=== PATIENT | male | born 1985 | race Caucasian/White ===

== ENCOUNTER 2024-04-30 14:15 | Outpatient (AMB) | payer OTHER, MEDICAID, SELFPAY ==
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
[2024-04-30 14:55] VITALS: BP 102/82; PULSE 79; O2SAT 99; BMI 26.4
== END 2024-04-30 15:17 | disposition home or self-care (01) ==
PROVIDERS: PCP Physician Assistant Medical; Visit Provider Physician Assistant
DX: M77.11 Lateral epicondylitis, right elbow (principal); F20.9 Schizophrenia, unspecified; F33.9 Major depressive disorder, recurrent, unspecified; M25.561 Pain in right knee; M25.552 Pain in left hip; F41.1 Generalized anxiety disorder; E78.5 Hyperlipidemia, unspecified

== ENCOUNTER → 2024-04-30 14:15 | Outpatient (BNVA) | payer OTHER, MEDICAID, SELFPAY | PROVIDERS: PCP Physician Assistant Medical; Visit Provider Physician Assistant | DX: M25.552 Pain in left hip (principal); M25.561 Pain in right knee; M77.11 Lateral epicondylitis, right elbow; F20.9 Schizophrenia, unspecified; F41.1 Generalized anxiety disorder; F33.9 Major depressive disorder, recurrent, unspecified; E78.5 Hyperlipidemia, unspecified | CPT/HCPCS: 96127; 99202 ==

== ENCOUNTER 2024-06-05 11:31 | Outpatient (REF) | payer OTHER, SELFPAY ==
[2024-06-05 11:45] LABS: MANUAL DIFF FLAG NO
[2024-06-05 12:26] LABS: Basophils Absolute Auto 0.1 X10*3/uL (0.0-0.2); Eosinophils Absolute Auto 0.2 X10*3/uL (0.0-0.4); Eosinophils Percent Auto 1.7 % (0-4); Hematocrit 45.8 % (42.0-52.0); Hemoglobin 15.5 g/dl (14.0-18.0); Imm Gran Abs Auto 0.03 X10*3/uL (0.00-0.03); Imm Gran Pct Auto 0.3 % (0.0-0.4); Lymphocytes Absolute Auto 2.4 X10*3/uL (1.2-4.9); Lymphocytes Percent Auto 25.4 % (20-40); Mean Corpuscular HGB Conc 33.8 g/dl (31.0-36.0); Mean Corpuscular Hemoglobin 29.8 pg (27.0-33.0); Mean Corpuscular Volume 88.1 fL (80.0-98.0); Mean Platelet Volume 11.6 fL (9.4-12.4); Monocytes Absolute Auto 0.8 X10*3/uL (0.1-1.2); Monocytes Percent Auto 8.1 % (2-11); Neutrophils Percent Auto 63.5 % (45-73); Platelet Count 294 X10*3/uL (160-400); White Blood Count 9.4 X10*3/uL (4.8-10.8)
[2024-06-05 15:05] LABS: Alanine Aminotransferase 17 U/L (0-40); Albumin Level 4.7 g/dL (3.5-5.0); Alkaline Phosphatase 73 U/L (39-117); Anion Gap 13 (12-20); Aspartate Amino Transferase 17 U/L (5-37); Bilirubin Total 0.5 mg/dL (0.0-1.0); Blood Urea Nitrogen 17 mg/dL (9-16); Calcium 9.8 mg/dL (8.4-10.2); Carbon Dioxide 26 mmol/L (22-29); Chloride 108 mmol/L (96-108); Cholesterol 147 mg/dL (<200); Estimated Glomerular Filt Rate > 60; Glucose Fasting 90 mg/dL (60-99); HDL Cholesterol 38 mg/dL (>40); LDL Cholesterol Calculated 93 mg/dL (<100); Potassium 4.6 mmol/L (3.3-5.1); Sodium 142 mmol/L (135-145); TSH reflex Free T4 1.06 uIU/mL (0.32-4.0); Total Protein 7.5 g/dL (6.5-8.0); Triglycerides 81 mg/dL (<150)
== END 2024-06-05 11:32 | disposition home or self-care (01) ==
LOC: HO.LAB 11:31
PROVIDERS: PCP Physician Assistant; Visit Provider Physician Assistant
DX: E78.5 Hyperlipidemia, unspecified (principal); F33.9 Major depressive disorder, recurrent, unspecified; F20.9 Schizophrenia, unspecified; F41.1 Generalized anxiety disorder; M25.552 Pain in left hip
CPT/HCPCS: 36415; 80053; 80061; 84443; 85025

== ENCOUNTER 2024-06-30 08:10 | Outpatient (RCR) | payer OTHER, SELFPAY ==
--- NOTE | 2024-06-05 13:37 | MHC.OT.EP ---
[address] [phone] Occupational Therapy Plan of Care Patient Name: Eliud Shah Date of Evaluation: 06/05/24 Diagnosis: R Elbow pain Pain Location: lateral elbow Pain Score: 2 Pain Scale Used: Numeric (0 - 10) Aggravating Factors: gripping , lifting Alleviating Factors: naproxen when needed Assessment: Pt is a 39 yr old R hand dominant male who saw his primary care to discuss pain in his R elbow. He reports he woke up 6 mos. ago w/ sx's of paresthesia in his hand and UE. He then reports he has had pain radiating from his lateral epicondyle into his wrist. He reports over the last few weeks the pain has significantly improved. He does however have pain w/ palpation of his lateral epi. 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 Thank you once again for your referral.
== END 2024-06-30 08:50 | disposition home or self-care (01) ==
LOC: HO.OT 08:10
PROVIDERS: PCP Physician Assistant; Visit Provider Physician Assistant
DX: M77.11 Lateral epicondylitis, right elbow (principal)
CPT/HCPCS: 97035; 97110; 97140; 97166; 97535

== ENCOUNTER 2024-09-03 08:46 | Outpatient (AMB) | payer OTHER, MEDICAID, SELFPAY ==
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
[2024-09-03 08:55] VITALS: BP 118/82; PULSE 74; TEMP 36.8; O2SAT 97; BMI 25.8
== END 2024-09-03 09:20 | disposition home or self-care (01) ==
LOC: HO.HMCFM 08:47
PROVIDERS: PCP Physician Assistant Medical; Visit Provider Physician Assistant Medical
DX: E78.5 Hyperlipidemia, unspecified (principal); F20.9 Schizophrenia, unspecified; M77.11 Lateral epicondylitis, right elbow

== ENCOUNTER → 2024-09-03 08:46 | Outpatient (BNVA) | payer OTHER, SELFPAY | PROVIDERS: PCP Physician Assistant Medical; Visit Provider Physician Assistant Medical | DX: F41.1 Generalized anxiety disorder (principal); E78.5 Hyperlipidemia, unspecified; F20.9 Schizophrenia, unspecified; M77.11 Lateral epicondylitis, right elbow | CPT/HCPCS: 96127; 99212 ==

== ENCOUNTER → 2024-12-05 18:47 | Outpatient (BNV) | payer OTHER, SELFPAY ==
--- NOTE | 2024-12-05 18:48 | MHC.PC.OV ---
Intake Visit Reasons: Amb Documentation Allergies No Known Allergies Allergy (Verified 09/03/24 08:53) Tobacco use date assessed: 09/03/24 Dental Screening Dental Screen Date: 09/03/24 HPI Amb Documentation HPI Details 39-year-old male with a history of generalized anxiety disorder hypercholesterolemia calling in for an acute problem through Telehealth patient complains of being sees exposed 2 brushes/plans and started to have right arm pruritus rash development. Patient has placed calamine lotion with no relief of symptoms prompting for the call. Through video seen right arm with maculopapular rash with some calamine lotion on top. [facility] Surgical History (Updated 04/30/24 @ 14:55 by Briseida Fortune CMA) No pertinent past surgical history Family History Mother Lung cancer Brother Substance abuse Social History (Updated 09/03/24 @ 08:54 by Gill Rangel MA) Housing: Apartment Alcohol intake: never Patient Tobacco Use Status: Former Tobacco user Cigarettes Per Day: 3 Years Smoked: 2 e-Cigarette/Vaping Use: Former Use Second Hand Smoke Exposure: No Substance Use Type: Marijuana service: No Current occupational status: employed and unemployed Current occupation: SS/Disability Cognitive needs: No Hearing needs: No Vision needs: No Questionnaire Thrive Questionnaire Date Thrive assessed: 09/03/24 Physical exam (Primary Care) Tobacco/Smoking Status: Tobacco use Status Tobacco use date assessed 09/03/24 09/03/24 08:58 Patient Tobacco Use Status Former Tobacco user 09/03/24 08:54 e-Cigarette/Vaping Use Former Use 09/03/24 08:54 Thrive Assessment: Date of Thrive Assessment Date Thrive assessed 09/03/24 09/03/24 08:58 Telehealth Telehealth Telehealth Platform: [facility] Location of provider rendering services: practice address Location of patient: address on file Patient Identification confirmed using: Name, : Yes Telehealth method: video Patient verbally consented to treatment: Yes Patient verbally consented to billing insurance company: Yes Patient informed of any privacy concerns related to visit: Yes Minutes spent on Phone/Video with Pt.: 15 Coding Level of Care Code Tele Est Pt Level 3 (40351) Diagnoses Allergic contact dermatitis L23.9 Assessment & Plan Assessment & Plan (1) Allergic contact dermatitis: Code(s): L23.9 - Allergic contact dermatitis, unspecified cause Category: Medical Plan: Patient is prescribed steroids prednisone and cream to help with the pruritus and discussed about dosing as well as taking steroids with food. This was last for 8 days through tapering dose. Patient is advised to wash all floats that have been contacted with warm water. Persistence advised to call.
== END ==
PROVIDERS: PCP Physician Assistant Medical; Visit Provider Internal Medicine
DX: L23.9 Allergic contact dermatitis, unspecified cause (principal)
CPT/HCPCS: 99213

== ENCOUNTER 2024-12-31 14:10 | Outpatient (AMB) | payer OTHER, SELFPAY ==
--- OUTSIDE RECORDS SUMMARY | 2024-12-27 15:25 | XMS_ITS | Continuity of Care Document ---
Author Organization [facility] ter Address [address] [place] [id number] Care Team Providers Care Double End Trimmer Name Role Phone Josselin De León Primary Care Physician Encounter [facility] [place] Date(s): 12/23/24 - 12/27/24 [facility] [address] [place] [id number] Discharge Disposition: A-D/C Home Attending Physician: Daniel Lazcano MD Admitting Physician: Hallie Loredo DO Referring Physician: Not on Staff, Referring MD Encounter Type: Disch IP Allergies, Adverse Reactions, Alerts No Known Allergies Immunizations Given and Recorded Vaccine Date Status Refusal Reason influenza virus vaccine, inactivated 02/11/24 Miles rded influenza virus vaccine, inactivated 02/25/23 Miles rded influenza virus vaccine, inactivated 03/26/22 Miles rded influenza virus vaccine, inactivated 02/24/21 Miles rded influenza virus vaccine, inactivated 03/05/18 Miles rded influenza virus vaccine, inactivated 02/17/16 Miles rded influenza virus vaccine, inactivated 01/25/15 Miles rded tetanus/diphtheria/pertussis, acel(Tdap) 05/11/22 Recorded tetanus/diphtheria/pertussis, acel(Tdap) 01/04/12 Recorded [id number] 12y+ bivalent booster vax 03/26/22 Recorded SARS-CoV-2 (COVID-19) mRNA BNT-162b2 vac 04/15/21 Recorded SARS-CoV-2 (COVID-19) mRNA BNT-162b2 vac 09/24/20 Recorded SARS-CoV-2 (COVID-19) mRNA BNT-162b2 [facility] 09/03/20 Recorded Medications atorvastatin 10 mg oral tablet = 20 mg, By Mouth, Daily at bedtime, # 30 tablet, 0 Refills, Maintenance, 10/03/23 6:29:00 PM EDT, Partial fill upon patient request if the prescription is for a schedule II opioid drug. Start Date: 10/03/23 Status: Ordered Quantity: 30.0 Unit: tablet Repeat number: 1 Clonazepam = 0.5 mg, By Mouth, 3 times a day, 8AM, 12PM, 4PM, 0 Refills, Maintenance, 01/05/24 11:03:00 AM EDT,Partial fill upon patient request if the prescription is for a schedule II opioid drug. Start Date: 01/05/24 Status: Ordered Repeat number: 1 doxycycline monohydrate 100 mg oral capsule 1 capsule = 100 mg, By Mouth, 2 times a day, for 7 days, # 14 capsule, 0 Refills, Acute 01/03/25 12:15:00 PM EDT, 12/27/24 12:15:00 PM EDT, Capsule, [facility], Partial fill upon patient request if the prescription is for a schedule II opioid drug., 170, cm, 12/27/24 7:40:00 EDT, Height, 78, kg, 12/24/24 12:59:00 EDT, Dry Weight Start Date: 12/27/24 Stop Date: 01/03/25 Status: Ordered Quantity: 14.0 Unit: capsule Repeat number: 1 Olanzapine = 10 mg, By Mouth, Daily at bedtime, 0 Refills, Maintenance, 10/03/23 6:29:00 PM EDT, Partial fill upon patient request if the prescription is for a schedule II opioid drug. Start Date: 10/03/23 Status: Ordered Repeat number: 1 PROzac 10 mg oral capsule 30mg daily, By Mouth, Daily, # 1 capsule, Refills 0, Tot. Refills 0, Maintenance, 10/12/15 8:27:01 AMEDT, Route to Pharmacy Electronically, [address] Start Date: 10/12/15 Status: Ordered Quantity: 1.0 Unit: capsule Repeat number: 1 Results Radiology Reports * Exam Date Time Procedure Performing Provider Status 12/23/24 4:[address] Ext Lower W/ Contrast Left Auth (Verified) Notes: (CT Ext Lower W/ Contrast Left) Reason For Exam: Infection RESULT: CT Ext Lower W/ Contrast Left CT Ext Lower W/ Contrast Left Refer to EMR; Hx of Present Illness: Pt reports he was seen and treated here 2 days ago placed onBactrim-pt is back here today as area has doubled in size and increase redness and now + drainage fromarea.Pt denies any fever , pt is tachycardic; Reason: Infection; Clinical Question(s): Tib Fib; r onec fasc, deep abscess above the right ankle; Special Instructions: scan from below knee down i TECHNIQUE: Helical CT with contrast formatted in 3 planes. cc of was administered intravenously. Weight-based protocol using automatic tube modulation was used to optimize exposure parameters. CTDIvol Body: 15.20 mGy, DLP Body: 771 mGy*cm. COMPARISONS: None FINDINGS: Bones and joints: No fracture or dislocation is present. No erosions, productive changes or abnormal calcifications are noted. Soft Tissues: Along the posterolateral aspect of the left calf, there is a 2.1 x 1.1 x 1 cm subcutaneous cavitary lesion with internal foci of gas and hyperdense material which could represent packing material or blood products. There is a small sinus tract to the skin. There is surrounding skin thickening and mild to moderate diffuse subcutaneous edema, extending to the lateral malleolus, most li antonino representing cellulitis. No evidence of deeper extension or necrotizing fasciitis. IMPRESSION: 1. Along the posterolateral aspect of the left calf, 2.1 x 1.1 x 1 cm subcutaneous cavity with internal foci of gas, and hyperdense material which could represent packing material or blood products. Small sinus tract to the skin. 2. Surrounding cellulitis. No evidence of necrotizing fasciitis. WSN: [id number] Ordering Physician: Andreia Leavitt Dictated By: Benedict Avila MD Dictated Date/Time: 12/23/24 4:40 pm Reviewed By: Benedict Avila MD Signed By: Benedict Avila MD Signed Date/Time: 12/23/24 4:40 pm Transcribed By: CSHumberto Transcribed Date/Time: 12/23/24 4:31 pm Admission evaluation note * Adeline Huggins: MODIFY, MODIFY, MODIFY, PERFORM, MODIFY, MODIFY, MODIFY, MODIFY, MODIFY, MODIFY, MODIFY Event Display: Admission Note Authored Date: [id number] Patient: ??CROW DOWD ? Age:??39 Years?Sex:??Male?:??1985?? History of Present Illness Patient is a 39-year-old gentleman with past medical history of chronic neck pain, anxiety, depression, PTSD and OCD, and recreational marijuana use. ?? A little over one month ago he presented with multiple sores to both distal legs after he was scratched by his cat. No bites.?? Initially seen in ED on 11/18/2024, and was discharged on 7-day course with Augmentin 875mg???125mg for management of RLE cellulitis.?? He presented??tp ED again on 12/21/2024 with 4-day history of worsening redness and swelling to the left lower extremity, and ??question of purulent wound-that he popped the night before he presented to ED.?? He admitted that he has this obsession to pick at his scabs and wounds which he admittedly did in this case.?? He also reported that after finishing recent antibiotic course he was also exposed to poison johanny and was placed on prednisone 12/05, which he completed.?? He continues to deny any IV drug use.?? At the time his visit was notable for tachycardia, with stable BP send no fevers.?? Lab work with notable leukocytosis WBC count 23.7 with a left shift; slight bump in CRP at 1.0, with unremarkable ESR 12.?? Rest of the lab work was reassuring.?? He was discharged on 7-day course with Bactrim, and topical chlorhexidine soap. He returned to??ED ??this afternoon with worsening left lower extremity infection and ankle swelling, wound?now draining purulent discharge.?? He admitted that he continues to scratch and pick at the area.?? Reported compliance with recently prescribed Bactrim. Denies fevers, chills or rigors.?? Remainder of the review of systems is negative for chest pain, dyspnea, cough, lightheadedness or dizziness.?? No GI complaint such as abdominal pain/distention/nausea/vomiting/diarrhea or melena.?? No complaints.?Denies personal history of type 2 diabetes me llitus.?? Denies other immunocompromising states, including HIV.?? He does not smoke cigarettes/tobacco use.?? Denies any recreational drug use including IV drug use. ?? ED course: On presentation was notably tachycardic with HR initially in the 140s, improved to 120s.?? With stable BPs although slightly on the hypertensive side highs documented BP 140/93.?? Remains afebrile.??Without tachypnea or hypoxia.?? Initial lab work was notable for improving leukocytosis (from priorvisit 12/20) today 2.2, with left shift.?? General chemistry panel now raising concern for mild acute kidney injury with creatinine 1.47/BUN 15 (from prior baseline 1.1); with mild NAGMA bicarb of 19.?? Lactate was WNL at 1.4. CT of the left lower extremity showed: IMPRESSION: 1.?? Along the posterolateral aspect of the left calf, 2.1 x 1.1 x 1 cm subcutaneous cavity with internal foci of gas, and hyperdense material which could represent packing material or blood products. Small sinus tract to the skin. 2.?? Surrounding cellulitis. No evidence of necrotizing fasciitis. ?? He was started on empiric vancomycin and will be admitted for further evaluation management of sepsis secondary to purulent cellulitis of the left lower extremity with associated acute kidney injury. Review of Systems Constitutional:?As per HPI. Cardiovascular:??No chest pain,pressure or discomfort. No palpitations or pedal edema. Respiratory:??No shortness of breath, cough or sputum production. Gastrointestinal:?No anorexia, nausea, vomiting or diarrhea. No abdominal pain or blood in stool. Genitourinary: No burning micturition. Neurologic: No headache, dizziness, syncope, unilateral weakness, ataxia, numbness or tingling in the extremities. Musculoskeletal: As per HPI. Objective Measurements?? Height: 170 cm (12/23/24) Weight: 75 kg (12/23/24) Dry Weight: 75 kg (12/23/24) Body Mass Index:??25.95 kg/m2??High (12/23/24) ? Vital Signs?? Temperature: 98.4 DegF (12/23/24 20:02:00) Temperature Route: Oral (12/23/24 20:02:00) Pulse Rate: 80 bpm (12/23/24 20:02:00) Respiratory Rate: 18 br/min (12/23/24 20:02:00) Systolic Blood Pressure: 128 mm Hg (12/23/24 20:02:00) Diastolic Blood Pressure:??87 mm Hg??High (12/23/24 20:02:00) Blood pressure sites: Arm, left (12/23/24 20:02:00) Mean Arterial Pressure: 101 mm Hg (12/23/24 20:02:00) Pulse Pressure: 41 mm Hg (12/23/24 20:02:00) Oxygen Saturation: 95 % (12/23/24 20:00:00) Mode of Delivery (Oxygen): Room air (12/23/24 20:00:00) Early Warning Score: 5 (12/23/24 20:09:17) ? Intake/Output? No Data Available ? Physical Exam GEN:??Pleasant elderly gentleman, appears stated age. ??DAWN x 3, provides good history. ??Nontoxic???appearing. ??No distress.?? Euvolemic on exam. CV: Regular rate and rhythm. S1 and S2 normal . No murmurs. PULM: ??BS clear to auscultation BL. ABD: Soft. Non-distended.?? Nontender. EXT:??//Exam is limited by recently apply clean/dry/intact dressing by ED staff.?? A large 10 x 10 cm erythema with very center with pus.?? Tender to palpation.?? Some ankle swelling (compared to contralateral extremity).?? Warm to touch.?? No crepitus.?? Pulses are strong and intact.?? Compartments are soft and easily compressible. ??Motor and neurovascular examination otherwise intact. //Noted??superficial scabs throughout the??distal aspect of the right lower extremity, without surrounding cellulitic findings. NEURO: No gross neurologic focal deficits. SKIN: Warm/dry/well-perfused, except for findings as mentioned above. PSYCH: Patient is calm and pleasant.? Assessment/Plan Patient is a 39-year-old gentleman with past medical history of chronic neck pain, anxiety, depression, PTSD and OCD, and recreational marijuana use. ?? Diagnoses ? Sepsis (A41.9): . Cellulitis of left lower extremity (L03.116): . Acute kidney injury (N17.9): 2/2 sepsis. Metabolic acidosis, normal anion gap (NAG) (E87.20): 2/2 sepsis and YEIMI.?? Approximately a little over a month ago patient sustained multiple scratches to his lower extremities by his cat.?? He was in the ED on 11/18/2024 and completed 7-day course with Augmentin.?? Unfortunately after finishing the course, he continued to pick at the scabs (hx of OCD)??and also had exposure to the poison johanny.?? He returned to emergency department 12/21/2024 with worsening redness and new purulent discharge from?? the lower extremity wound and was started on 7-day course with Bactrim andHibiclens.?? He returned 2 days later today, 12/23, with acute worsening in his left distal lower extremity swelling/redness, now pus coming from the wound.?? Workup in ED is concerning for sepsis secondary to purulent left lower extremity cellulitis, with tachycardia, leukocytosis, and acute kidneyinjury with associated metabolic acidosis.?? Fortunately blood pressures remained stable.?? Lactateis unremarkable.?? He will be admitted for further evaluation management, with the following plan ??? Admit to acute care medical floor ??? He was started on empiric vancomycin, will continue with Vancomycin (while awaiting bacterial blood cultures and superficial wound cultures), per renal function ??? Please follow-up on bacterial blood cultures ??? Please follow-up on superficial wound culture/sensitivity???already sent out by ED ??? Repeat CBC in the morning to trend leukocytosis - Pain control with as needed Tylenol, so far did not require anything beyond that ??? Will monitor for new onset fevers -S/P 1L NS bolus from ED, will provider maintenance IVF w/ NS at 75ml/hr x13hrs -repeat BMP and electrolytes in the morning to ensure resolution of YEIMI. If no improvement/resolution consider renal US and additional labwork ?? Anxiety (F41.9): . Depression (F32.9): . PTSD (post-traumatic stress disorder) (F43.10): . OCD (obsessive compulsive disorder) (F42.9): . - Continue scheduled clonazepam 0.5 mg @8am, 12pm, 4pm; daily Prozac and nightly olanzapine. ?? Hyperlipidemia (E78.5): ??? Continue atorvastatin ? Quality Measures: DVT prophylaxis: Heparin SQ TID Diet: regular diet Code Status: FULL CODE - as discussed with patient at bedside Medication list: confirmed with??patient at bedside. ?? Opportunity for questions given and answered.?? Patient verbalized understanding and in agreement with the above plan. ?? Date of service:??12/23/2024 ? Histories Allergies Allergies ?(Active and Proposed Allergies Only) NKA? (Severity: Unknown severity, Onset: Unknown) ? Past Medical History/Problem List No problems documented. ? Past Surgical History No surgery history documented. ? Social History No social history documented. ? Psychosocial History ? Family History Mother (): A lung cancer, former cigarette smoker,??type 2 diabetes mellitus Father:??ESRD???requiring HD, has not been???with him for many years at this point ?? Medications Home Medications Atorvastatin (atorvastatin 10 mg oral tablet)??20 Milligram By Mouth Daily at bedtime Clonazepam??0.5 Milligram By Mouth 3 times a day 8AM, 12PM, 4PM Fluoxetine (PROzac 10 mg oral capsule)??30mg daily By Mouth Daily Olanzapine??10 Milligram By Mouth Daily at bedtime ? Results Recent Labs BACTERIOLOGY Blood Culture Results Preliminary report ()?? 12/21/2024 10:52 Blood Culture Isolate 1 Comment ()?? 12/21/2024 10:52 Blood Cult 2 Results Preliminary report ()?? 12/21/2024 10:52 Blood Culture 2 Isolate 1 Comment ()?? 12/21/2024 10:52 ?? BLOOD COUNT & DIFF WBC 18.2 k/mm3 (High)?? 12/23/2024 10:26 RBC 5.53 m/mm3 ()?? 12/23/2024 10:26 Hgb 16.4 Gm/dL ()?? 12/23/2024 10:26 Hct 48.2 % ()?? 12/23/2024 10:26 MCV 87.2 femtoliters ()?? 12/23/2024 10:26 MCH 29.7 pg ()?? 12/23/2024 10:26 MCHC 34.0 Gm/dL ()?? 12/23/2024 10:26 Platelet Count 333 k/mm3 ()?? 12/23/2024 10:26 RDW-SD 42.2 femtoliters ()?? 12/23/2024 10:26 MPV 11.2 femtoliters ()?? 12/23/2024 10:26 Nucleated RBC (Automated) 0.0 #/100 WBC'S ()?? 12/23/2024 10:26 Abs. NRBC 0.0 k/mm3 ()?? 12/23/2024 10:26 Abs. Neut 14.7 k/mm3 (High)?? 12/23/2024 10:26 Abs. Lymph 1.7 k/mm3 ()?? 12/23/2024 10:26 Abs. Emmons 1.5 k/mm3 (High)?? 12/23/2024 10:26 Abs. Eo 0.1 k/mm3 ()?? 12/23/2024 10:26 Abs. Baso 0.1 k/mm3 ()?? 12/23/2024 10:26 Neut % 81.0 % (High)?? 12/23/2024 10:26 Lymph % 9.4 % (Low)?? 12/23/2024 10:26 Emmons % 8.4 % ()?? 12/23/2024 10:26 Eos % 0.5 % ()?? 12/23/2024 10:26 Baso % 0.3 % ()?? 12/23/2024 10:26 Imm Gran 0.4 % ()?? 12/23/2024 10:26 Abs. Imm Gran 0.1 k/mm3 ()?? 12/23/2024 10:26 ?? CHEM GENERAL Sodium 138 mmol/L ()?? 12/23/2024 10:26 Potassium 3.7 mmol/L ()?? 12/23/2024 10:26 Chloride 103 mmol/L ()?? 12/23/2024 10:26 Bicarbonate Level 19 mmol/L (Low)?? 12/23/2024 10:26 Anion Gap 16 mmol/L ()?? 12/23/2024 10:26 Glucose Level 142 mg/dL (High)?? 12/23/2024 10:26 BUN 15 mg/dL ()?? 12/23/2024 10:26 Creatinine-Blood 1.47 mg/dL (High)?? 12/23/2024 10:26 Estimated GFR Creatinine 61 ML/MIN/1.73 M2 ()?? 12/23/2024 10:26 Calcium 10.3 mg/dL ()?? 12/23/2024 10:26 Protein, Total 7.9 Gm/dL ()?? 12/23/2024 10:26 Albumin 4.8 Gm/dL ()?? 12/23/2024 10:26 AG Ratio 1.5 ()?? 12/23/2024 10:26 Alkaline Phosphatase 93 units/L ()?? 12/23/2024 10:26 AST (SGOT) 12 units/L ()?? 12/23/2024 10:26 ALT (SGPT) 8 units/L ()?? 12/23/2024 10:26 Bilirubin, Total 0.7 mg/dL ()?? 12/23/2024 10:26 Lactate 2.1 mmol/L ()?? 12/23/2024 16:04 ?? URINE OTHER Est Creatinine Clearance 61.68 mL/min ()?? 12/23/2024 11:38 ? Image ?CT Ext Lower W/ Contrast Left??12/23/2024 16:28 by Cali Alexander ?IMPRESSION: 1. Along the posterolateral aspect of the left calf, 2.1 x 1.1 x 1 cm subcutaneous cavity with internal foci of gas, and hyperdense material which could represent packing material or blood products. Small sinus tract to the skin. 2. Surrounding cellulitis. No evidence of necrotizing fasciitis. ?? EKG study * Event Display: ECG 12-Lead Authored Date: Please click on pdf link to open report * Event Display: ECG 12-Lead Authored Date: Ventricular Rate: 118 BPM Atrial Rate: 118 BPM P-R Interval: 122 ms QRS Duration: 72 ms Q-T Interval: 326 ms QTC Calculation(Bazett): 456 ms P [place]: 72 degrees R [place]: 58 degrees T [place]: 56 degrees Sinus tachycardia Otherwise normal ECG When compared with ECG of 17-Apr-2013 20:31, Vent. rate has increased by 51 bpm Confirmed by ELISE GOMEZ [facility] ([id number]) on 12/23/2024 5:18:54 PM [place]: [facility] * Mónica Curry RN: PERFORM, SIGN, VERIFY Event Display: Progress Note Hospital Authored Date: Patient: CROW DOWD Age: 39 years Sex: Male : 1985 Associated Diagnoses: None Author: Mónica Curry RN Findings Evaluation Patient being discharged home today. Discharge instructions printed and reviewed with patient. Peripheral IV removed with catheter intact and pressure dressing applied. Pt. ambulated off unit independently. . * Candace Nguyen RN: PERFORM, SIGN, VERIFY Event Display: Progress Note Hospital Authored Date: Patient: CROW DOWD Age: 39 years Sex: Male : 1985 Associated Diagnoses: None Author: Candace Nguyen RN See CIS for Biophysical Patient is A&Ox4, denies any nausea or dizziness. VSS, afebrile. Patient had no c/o pain, pt refused evening medications. Denies Chest pain or SOB, clear LS on RA. Steady rise and fall of chestnoted. Tolerating diet as ordered. Last BM 12/25. +BS, no c/o of abdominal pain or tenderness. Continent of stool and urine. See CIS for detailed skin assessment. IND at baseline. Patient is resting comfortably with all needs met, all questions and concerns addressed. Bed in lowest locked position with safety features in place. Call nuñez within reach. Plan of care ongoing, purposeful??hourly rounds made Findings Problem Related to Alteration in Integumentary : Alteration in Integumentary/new 12/27/2024 5:00 EDT Alteration in Integumentary Related to Cellulitis Goals & Outcomes, Integumentary Nutritional intake is adequate for metabolic needs, Pt will maintain adequate fluid & nutritional balance, Pt will maintain intact skin integrity, Wound will progress towards healing Interventions, Integumentary Cleanse all wounds with Normal Saline, Collaborate w/ provider for PT/OT consults, Consult Wound Care as needed for further interventions, Encourage & assist pt to change position frequently, Encourage & assist with range of motion exercises, Encourage family participation in pt's care as they are able, Ensure relief modes are on mattress surface & utilized, Increase turning frequency if red or blanched areas appear, Interdisciplinary consults as appropriate, Keep bed as flat as tolerated to reduce shearing, Keep linen clean, dry and wrinkle free, Keepskin clean & dry, Maintain sterile technique with dressing changes, Minimize friction, shear and moisture, Monitor reddened areas for continued or increasing reddness, Record extent of impaired skin integrity, Relieve pressure off bony areas, Reposition pt off reddened areas, Teach Pt/caregivers/s of infection, Teach Pt/S.O. risks of & measures to prevent skin breakdown, Use barrier cream/ointment if pt's skin is frequently moist, Use fecal incontinence appliance if pt incontinent of stool, Use heel & elbow protectors to relieve friction, Use pH balanced no rinse cleanser if incon tinent, Use pressure dispersing devices as appropriate Goals/Interventions, Integumentary Yes Integumentary, Problem Start 12/24/2024 10:33 Reviewed plan with, Integumentary Patient Patient Progression, Integumentary Pt progressing according to plan . Discharge Information Case Management Discharge Plan : Case Management Discharge Plan Data 12/21/2024 12:50 EDT Discharge Level of Care at Discharge Home/[facility] * Jaleesa GOMEZ, Daniel: PERFORM Event Display: Progress Note Hospital Authored Date: [id number] Patient: ??CROW DOWD ? Age:??39 Years?Sex:??Male?:??1985?? Subjective Examined and care discussed with nursing.?? His pain continues to improve. ??Denies any fever or chills.?? Now??wound cultures growing??MRSA Review of Systems Constitutional:??No weight loss, fever, chills, weakness or fatigue. Eyes:??No visual loss, blurred vision, double vision or yellow sclera ENT:??No hearing loss, sneezing, congestion, runny nose or sore throat. Respiratory:??No shortness of breath, cough or sputum production. Cardiovascular:??No chest pain, chest pressure or chest discomfort. No palpitations or pedal edema. Gastrointestinal:??No anorexia, nausea, vomiting or diarrhea. No abdominal pain or blood in stool. Neurologic:??No headache, dizziness, syncope, unilateral weakness, ataxia, numbness or tingling in the extremities. Musculoskeletal:??Left lower extremity pain improving. ?? Objective ?? Physical Exam Constitutional: Alert, in no distress. Mental Status: Oriented to person, place and time. Head: Normocephalic. Eyes: Pupils are equal, round and reactive to light.?? Ear, Nose and Throat: Oropharynx clear, mucous membranes moist.?? Neck: Supple, Full range of motion. Respiratory: Clear to auscultation. No wheezing, rales or rhonchi. Cardiovascular: S1 S2 regular. No murmurs, rubs or gallops. Gastrointestinal: Abdomen soft, non-tender, non-distended. Normal bowel sounds.?? Neurologic: Cranial nerves II-XII grossly intact. No focal neurological deficits.?? Musculoskeletal:??Left lower extremity??wound with packing in place. Psychiatric: Normal mood and affect Assessment/Plan ?Patient is a 39-year-old gentleman with past medical history of chronic neck pain, anxiety, depression, PTSD and OCD, and recreational marijuana use. ?? Sepsis (A41.9): . Cellulitis of left lower extremity (L03.116): . Acute kidney injury (N17.9): 2/2 sepsis. Metabolic acidosis, normal anion gap (NAG) (E87.20): 2/2 sepsis and YEIMI.?? Approximately a little over a month ago patient sustained multiple scratches to his lower extremities by his cat.?? He was in the ED on 11/18/2024 and completed 7-day course with Augmentin.?? Unfortunately after finishing the course, he continued to pick at the scabs (hx of OCD)??and also had exposure to the poison johanny.?? He returned to emergency department 12/21/2024 with worsening redness and new purulent discharge from?? the lower extremity wound and was started on 7-day course with Bactrim andHibiclens.?? He returned 2 days later today, 12/23, with acute worsening in his left distal lower extremity swelling/redness, now pus coming from the wound.?? Workup in ED is concerning for sepsis secondary to purulent left lower extremity cellulitis, with tachycardia, leukocytosis, and acute kidneyinjury with associated metabolic acidosis.?Blood pressures remained stable.?? Lactate is unremarkable.?? He will be admitted for further evaluation management, with the following plan ??? He was started on empiric vancomycin, will continue with Vancomycin -Cultures have been negative so far -Wound cultures growing MRSA - Pain control with as needed Tylenol, so far did not require anything beyond that ??? Renal function has been gradually improving - Patient had I&D done in the ED and the wound has been packed. ?? Anxiety (F41.9): . Depression (F32.9): . PTSD (post-traumatic stress disorder) (F43.10): . OCD (obsessive compulsive disorder) (F42.9): . - Continue scheduled clonazepam 0.5 mg @8am, 12pm, 4pm; daily Prozac and nightly olanzapine. ?? Hyperlipidemia (E78.5): ??? Continue atorvastatin ? Quality Measures: DVT prophylaxis: Heparin SQ TID Diet: regular diet Code Status: FULL CODE - as discussed with patient at bedside Medication list: confirmed with??patient at bedside. ?? Ongoing medical necessity; requiring IV vancomycin for MRSA infection ? Note * Patricio MATHIAS, Mónica: PERFORM Event Display: Discharge/Transfer Note Hospital Authored Date: [id number] Nursing Discharge Note Entered On: 12/27/2024 15:26 EDT Performed On: 12/27/2024 15:25 EDT by Mónica Curry RN Nursing Discharge Note 2 Discharge Time : 12/27/2024 15:25 EDT Discharge Level of Care at Discharge : Homehealth/VNA Discharge VNA/Hospice/Home Care(v001) : [facility] Patient Left Unit Via : Ambulatory Patient Accompanied Off Unit with : Other: self DC Instructions Provided & Signed by Pt : Yes Patient Understands D/C Instructions : Yes Patient Instructions Discharge Signed : Yes Did Pt have Specialty Bed or Wound Vac : No Mónica Curry RN - 12/27/2024 15:25 EDT * Jaleesa GOMEZ, Daniel: PERFORM Event Display: Discharge/Transfer Note Hospital Authored Date: [id number] Patient: ??CROW DOWD ? Age:??39 Years?Sex:??Male?:??1985?? Patient Information Discharge Location: W3 Primary Care Physician: Josselin De León Admit Date/Time: 12/23/2024 17:38 Discharge Date:??12/27/2024 12:10 Discharge Disposition Discharge Disposition: Home with Home Health Discharge Diagnosis Sepsis (A41.9) Cellulitis of left lower extremity (L03.116) Acute kidney injury (N17.9) Metabolic acidosis, normal anion gap (NAG) (E87.20) Anxiety (F41.9) Depression (F32.9) PTSD (post-traumatic stress disorder) (F43.10) OCD (obsessive compulsive disorder) (F42.9) General medical ([id number]) _ Discharge Medications Atorvastatin (atorvastatin 10 mg oral tablet)??20 Milligram By Mouth Daily at bedtime Clonazepam??0.5 Milligram By Mouth 3 times a day 8AM, 12PM, 4PM Fluoxetine (PROzac 10 mg oral capsule)??30mg daily By Mouth Daily Olanzapine??10 Milligram By Mouth Daily at bedtime Sulfamethoxazole/Trimethoprim (Bactrim DS 800 mg-160 mg oral tablet)??1 tab(s) By Mouth 2 times a day for 7 Days ? Medications Started Bactrim DS 1 tablet twice a day for 1 week Medications Discontinued None Doses Changed None Allergies Allergies ?(Active and Proposed Allergies Only) NKA? (Severity: Unknown severity, Onset: Unknown) ? Hospital Course ??Patient is a 39-year-old gentleman with past medical history of chronic neck pain, anxiety, depression, PTSD and OCD, and recreational marijuana use. One month ago he presented with multiple sores to both distal legs after he was scratched by his cat. No bites.?? Initially seen in ED on 11/18/2024,and was discharged on 7-day course with Augmentin 875mg???125mg for management of RLE cellulitis.??He presented??tp ED again on 12/21/2024 with 4-day history of worsening redness and swelling to the left lower extremity, and ??question of purulent wound-that he popped the night before he presented to ED.?? He admitted that he has this obsession to pick at his scabs and wounds which he admittedly d id in this case.?? He also reported that after finishing recent antibiotic course he was also exposed to poison johanny and was placed on prednisone 12/05, which he completed.?? He continues to deny any IV drug use.?? At the time his visit was notable for tachycardia, with stable BP send no fevers.?? Lab work with notable leukocytosis WBC count 23.7 with a left shift; slight bump in CRP at 1.0, with unremarkable ESR 12.?? Rest of the lab work was reassuring.?? He was discharged on 7-day course with Bactrim, and topical chlorhexidine soap. He returned to??ED?with worsening left lower extremity infection and ankle swelling, wound?now draining purulent discharge.?? He admitted that he continues to scratch and pick at the area.?No fevers, chills or rigors.?? Remainder of the review of systems is negative for chest pain, dyspnea, cough, lightheadedness or dizziness.?? No GI complaint such as abdominal pain/distention/nausea/vomiting/diarrhea or melena.? ED course: On presentation was notably tachycardic with HR initially in the 140s, improved to 120s.?? With stable BPs although slightly on the hypertensive side highs documented BP 140/93.?? Remains afebrile.?Patient was empirically started on IV vancomycin and admitted to hospitalist service for further management. ?? Sepsis (A41.9): . Cellulitis of left lower extremity (L03.116): . Acute kidney injury (N17.9): 2/2 sepsis. Metabolic acidosis, normal anion gap (NAG) (E87.20): 2/2 sepsis and YEIMI.?? Workup in ED is concerning for sepsis secondary to purulent left lower extremity cellulitis, with tachycardia, leukocytosis, and acute kidney injury with associated metabolic acidosis.? CT scan of the left lower extremity done in the emergency room showed??- Along the posterolateral aspect of the left calf, 2.1 x 1.1 x 1 cm subcutaneous cavity with internal foci of gas, and hyperdense material which could represent packing material or blood products. Small sinus tract to the skin with srrounding cellulitis. No evidence of necrotizing fasciitis. Patient underwent incision and drainage in the ED and the wound was packed with??Aquacel Patient was started on IV vancomycin and was continued for 4 days Wound cultures??grew MRSA and was sensitive to multiple??oral antibiotics. His vancomycin was switched to oral doxycycline to complete a total of 10 days of therapy His initial YEIMI improved with IV fluid hydration??and his creatinine is now down to 1.27 from 1.47 Is??wound??was repacked??today??along with dressing change??and he will need that every 2 to 3 days??for the next??week or so ?? Anxiety (F41.9): . Depression (F32.9): . PTSD (post-traumatic stress disorder) (F43.10): . OCD (obsessive compulsive disorder) (F42.9): . - Continue scheduled clonazepam 0.5 mg @8am, 12pm, 4pm; daily Prozac and nightly olanzapine. ?? Hyperlipidemia (E78.5): ??? Continue atorvastatin ? Patient felt much improved now and so??VNA arranged??for his wound care??and discharge plans made. ? Objective Assessment and Plan ? Vital Signs?? Temperature: 97.7 DegF (12/27/24 07:40:00) Temperature Route: Oral (12/27/24 07:40:00) Pulse Rate: 86 bpm (12/27/24 07:40:00) Respiratory Rate: 18 br/min (12/27/24 07:40:00) Systolic Blood Pressure: 109 mm Hg (12/27/24 07:40:00) Diastolic Blood Pressure:??92 mm Hg??High (12/27/24 07:40:00) Blood pressure sites: Arm, right (12/27/24 07:40:00) Mean Arterial Pressure: 98 mm Hg (12/27/24 07:40:00) Pulse Pressure: 17 mm Hg (12/27/24 07:40:00) Oxygen Saturation: 98 % (12/27/24 07:40:00) Mode of Delivery (Oxygen): Room air (12/27/24 07:40:00) Early Warning Score: 2 (12/27/24 07:42:32) ? . Physical Exam Constitutional: Alert, in no distress. Mental Status: Oriented to person, place and time. Head: Normocephalic. Eyes: Pupils are equal, round and reactive to light. Ear, Nose and Throat: Oropharynx clear, mucous membranes moist. Neck: Supple, Full range of motion. Respiratory: Clear to auscultation. No wheezing, rales or rhonchi. Cardiovascular: S1 S2 regular. No murmurs, rubs or gallops. Gastrointestinal: Abdomen soft, non-tender, non-distended. Normal bowel sounds. Neurologic: Cranial nerves II-XII grossly intact. No focal neurological deficits. Musculoskeletal: Left leg??wound site appears clean. Psychiatric: Normal mood and affect Pending Results Creatinine ordered on 12/28/2024 Follow-Up Appointments Added Follow Up ?Time Frame ?Comments Josselin Kuldeep?1 week: call to discuss follow up visit Patient Instructions Pack wound with Aquacel and cover with dry sterile dressing Home Health Face to Face ^HomeHealthFTF Results Discharge Labs BACTERIOLOGY Blood Culture Results Preliminary report ()?? 12/23/2024 16:04 Blood Culture Specimen Source BLOOD ()?? 12/23/2024 16:04 Blood Culture Isolate 1 Comment ()?? 12/23/2024 16:04 Aerobic Cult Source SWAB ()?? 12/23/2024 14:02 Superficial Wound Cult Results Note (Abnormal)?? 12/23/2024 14:02 Blood Cult 2 Results Preliminary report ()?? 12/23/2024 16:17 Blood Culture 2 Specimen Source BLOOD ()?? 12/23/2024 16:17 Blood Culture 2 Isolate 1 Comment ()?? 12/23/2024 16:17 ?? BLOOD COUNT & DIFF WBC 9.6 k/mm3 ()?? 12/25/2024 00:45 RBC 4.86 m/mm3 ()?? 12/25/2024 00:45 Hgb 14.5 Gm/dL ()?? 12/25/2024 00:45 Hct 43.3 % ()?? 12/25/2024 00:45 MCV 89.1 femtoliters ()?? 12/25/2024 00:45 MCH 29.8 pg ()?? 12/25/2024 00:45 MCHC 33.5 Gm/dL ()?? 12/25/2024 00:45 Platelet Count 246 k/mm3 ()?? 12/25/2024 00:45 RDW-SD 42.5 femtoliters ()?? 12/25/2024 00:45 MPV 11.3 femtoliters ()?? 12/25/2024 00:45 Nucleated RBC (Automated) 0.0 #/100 WBC'S ()?? 12/25/2024 00:45 Abs. NRBC 0.0 k/mm3 ()?? 12/25/2024 00:45 Abs. Neut 14.7 k/mm3 (High)?? 12/23/2024 10:26 Abs. Lymph 1.7 k/mm3 ()?? 12/23/2024 10:26 Abs. Emmons 1.5 k/mm3 (High)?? 12/23/2024 10:26 Abs. Eo 0.1 k/mm3 ()?? 12/23/2024 10:26 Abs. Baso 0.1 k/mm3 ()?? 12/23/2024 10:26 Neut % 81.0 % (High)?? 12/23/2024 10:26 Lymph % 9.4 % (Low)?? 12/23/2024 10:26 Emmons % 8.4 % ()?? 12/23/2024 10:26 Eos % 0.5 % ()?? 12/23/2024 10:26 Baso % 0.3 % ()?? 12/23/2024 10:26 Imm Gran 0.4 % ()?? 12/23/2024 10:26 Abs. Imm Gran 0.1 k/mm3 ()?? 12/23/2024 10:26 ?? CHEM GENERAL Sodium 138 mmol/L ()?? 12/25/2024 00:45 Potassium 4.2 mmol/L ()?? 12/25/2024 00:45 Chloride 103 mmol/L ()?? 12/25/2024 00:45 Bicarbonate Level 23 mmol/L ()?? 12/25/2024 00:45 Anion Gap 12 mmol/L ()?? 12/25/2024 00:45 Glucose Level 110 mg/dL (High)?? 12/24/2024 05:26 BUN 17 mg/dL ()?? 12/25/2024 00:45 Creatinine-Blood 1.27 mg/dL (High)?? 12/25/2024 00:45 Estimated GFR Creatinine 73 ML/MIN/1.73 M2 ()?? 12/25/2024 00:45 Calcium 9.2 mg/dL ()?? 12/24/2024 05:26 Magnesium 1.9 mg/dL ()?? 12/24/2024 05:26 Protein, Total 7.9 Gm/dL ()?? 12/23/2024 10:26 Albumin 4.8 Gm/dL ()?? 12/23/2024 10:26 AG Ratio 1.5 ()?? 12/23/2024 10:26 Alkaline Phosphatase 93 units/L ()?? 12/23/2024 10:26 AST (SGOT) 12 units/L ()?? 12/23/2024 10:26 ALT (SGPT) 8 units/L ()?? 12/23/2024 10:26 Bilirubin, Total 0.7 mg/dL ()?? 12/23/2024 10:26 Lactate 2.1 mmol/L ()?? 12/23/2024 16:04 ? URINE OTHER Est Creatinine Clearance 71.39 mL/min ()?? 12/25/2024 01:52 ? 35??minutes spent on discharge * Mónica Curry RN: PERFORM Event Display: Patient Education/Instruction Authored Date: [id number] Inpatient Adult Discharge Instructions. [place] [id number] Name: CROW DOWD : 1985?? Visit: 12/23/2024 17:38?? Current Date: 12/27/2024 12:39 ?? Account: [id number]?? Inpatient Adult Discharge Instructions We would like to thank you for allowing us to assist you with your healthcare needs. The following includes patient education materials and information regarding your injury/illness. Our entire staffstrives to provide an excellent experience for our patients and their families. PLEASE ENSURE YOU FOLLOW-UP PER THE INSTRUCTIONS BELOW! ?? YOUR OPINION IS IMPORTANT TO US! Please complete the survey you may receive by mail or email. Your feedback will be used to make improvements to the healthcare experiences of our patients and their families. Surveys are administered by [employer] ?? If further treatment with your primary care physician or another doctor is recommended, it is important for you to keep the appointment. Call your primary care physician or return to the Emergency Department immediately if your condition worsens, fails to improve, or new symptoms develop. If you need to find a doctor, you can call [facility] Practice Management e-Tools for a referral at [phone] or toll free at [phone] or log in to [email or web address].. ?? [facility], in keeping with [facility] guidance, no longer requires face masks for staff, patientsor visitors in most situations. Similiar to time spent indoors at other locations, there is the chance that you were exposed to repiratory viruses during your time with us (such as flu or COVID-19). If you develop symptoms concerning for a viral respiratory infection, please seek testing (and treatment if indicated) from your medical provider or home test kit. ?? You can view and manage your care through the patient portal or by using a health care pilar of your choosing. [employer] is a website that allows you to securely view your medical information including your hospital discharge summary, office visit summaries, medications and follow-up visits. You can also request appointments, renew medications, and request access to your medical information using a health care pilar of your choosing, or just ask a question. You are entitled to know the individuals who participated in your treatment. This information is available within your medical record and will be provided upon your request. You can enroll at [email or web address] or register d uring your next office visit. You have been discharged from [facility], Patient Care Unit: W3??. If you have any questions regarding these instructions, including results of studies pending, afteryou leave, please call us and we will be happy to assist you 03/12. [facility] Your Care Team Attending Physician Daniel Lazcano MD?? Consulting Providers Daniel Lazcano MD?? Discharging Providers Daniel Lazcano MD Reason for Your Visit cellulitis and abscess (now draining) from cat bite refractory to Oral medications?? Your Diagnosis Sepsis Cellulitis of left lower extremity Acute kidney injury Metabolic acidosis, normal anion gap (NAG) Anxiety Depression PTSD (post-traumatic stress disorder) OCD (obsessive compulsive disorder) General medical Tests Performed Below is a partial list of the tests performed during your hospitalization. You may have had other tests and procedures not included in this list. Please discuss all test results with your provider. Basic Metabolic Panel Blood Culture Blood Culture #2 Blood Culture 2 Results Blood Culture Result BUN CBC CBC w/ Differential Comprehensive Metabolic Panel Electrolytes Lactate Level Magnesium Level Wound Superficial Culture W/ Gram Smear CT Ext Lower W/ IV Contrast Left BUN?? Basic Metabolic Panel?? Blood Culture?? Blood Culture #2?? Blood Culture 2 Results?? Blood Culture Result?? CBC?? CBC w/ Differential?? CT Ext Lower W/ Contrast Left (CT Ext Lower W/ IV Contrast Left)?? Comprehensive Metabolic Panel?? Creatinine?? Electrolytes?? Lactic Acid Level (Lactate Level)?? Magnesium Level?? Wound Superficial Culture W/ Gram Smear?? Primary Care Provider Josselin De León? Advance Directive Health Care Proxy on File Yes - Health Care Proxy Discharge Vitals Temperature: 97.7 DegF Height: 170 cm Pulse Rate: 86 bpm Weight: 78 kg Respiratory Rate: 18 br/min Body Mass Index:??26.99 kg/m2??High Systolic Blood Pressure: 109 mm Hg Body surface area: 1.92 Diastolic Blood Pressure:??92 mm Hg??High ?? Oxygen Saturation: 98 % ?? Studies Pending All studies ordered during this hospital stay have been completed unless listed below. Please discuss all pending results with your provider listed above in these instructions. ?? Creatinine?? What to do next Instructions From Your Doctor Pack wound with Aquacel and cover with dry sterile dressing ?? Orders? 12/27/24 12:20:00 EDT?? Prescriptions??, ??12/27/24 12:20:00 EDT?? You Need to Schedule the Following Appointments Follow Up with??Josselin Light When:??Within 1 week: call to discuss follow up visit Where: [address] [place] [address] [place] [address]- Business (1) Discharge Medications CROW DOWD :1985 Visit Date:12/23/2024 Medications: Please continue your medications until treatment is completed or stopped by your provider. Medications not listed below should be discontinued. Discuss any questions related to medications with your provider. What How Much When Instructions Next Dose New Doxycycline (doxycycline monohydrate 100 mg oral capsule) 1 capsule Oral Twice a day Duration: 7 Days Pickup at [facility] 3 9pm Changed Atorvastatin (atorvastatin 10 mg oral tablet) 20 Milligram Oral Daily at Bedtime 9pm Unchanged Clonazepam 0.5 Milligram Oral 3 times a day 8AM, 12PM, 4PM ?? 4pm Unchanged Fluoxetine (PROzac 10 mg oral capsule) 30mg daily Oral Daily 9am tomorrow Unchanged Olanzapine 10 Milligram Oral Daily at Bedtime 9pm Pharmacy Information [facility]: [address], [place] [id number] [phone] ?? What How Much When Comments Stop Taking Chlorhexidine Topical (Hibiclens 4% soap) 1 applicator Topically Daily Duration: 7 Days as directed apply to body ?? Stop Taking Lorazepam Stop Taking Sulfamethoxazole/ Trimethoprim (Bactrim DS 800 mg-160 mg oral tablet) 1 tab(s) Oral Twice a day Duration: 7 Days Prescription Given During Visit Doxycycline (doxycycline monohydrate 100 mg oral capsule) - 1 capsule = 100 mg, By Mouth, 2 times aday, # 14 capsule, 0 Refills, [facility] [place] [phone]?? Laboratory Results Below is a partial list of the most recent Laboratory test results done prior to this discharge. You may have had other tests and procedures not included in this list. Please discuss all test resultswith your provider. Est Creatinine Clearance - 71.39 mL/min (12/25/2024) Basic Metabolic Panel (12/24/2024) ???Sodium - 135 mmol/L???Potassium - 4.4 mmol/L???Chloride - 103 mmol/L???Bicarbonate Level - 23 mmol/L???Anion Gap - 9 mmol/L???Glucose Level - 110 mg/dL???BUN - 14 mg/dL???Creatinine-Blood - 1.43 mg/dL???Estimated GFR Creatinine - 63 ML/MIN/1.73 M2???Calcium - 9.2 mg/dL Blood Culture (12/23/2024) ???Blood Culture Results - Preliminary report???Blood Culture Specimen Source - BLOOD Blood Culture #2 (12/23/2024) ???Blood Cult 2 Results - Preliminary report???Blood Culture 2 Specimen Source - BLOOD Blood Culture 2 Results (12/23/2024) ???Blood Culture 2 Isolate 1 - Comment Blood Culture Result (12/23/2024) ???Blood Culture Isolate 1 - Comment BUN (12/25/2024) ???BUN - 17 mg/dL CBC (12/25/2024) ???WBC - 9.6 k/mm3???RBC - 4.86 m/mm3???Hgb - 14.5 Gm/dL???Hct - 43.3 %???MCV - 89.1 femtoliters???MCH - 29.8 pg???MCHC - 33.5 Gm/dL???Platelet Count - 246 k/mm3???RDW-SD - 42.5 femtoliters???MPV - 11.3 femtoliters???Nucleated RBC (Automated) - 0.0 #/100 WBC'S???Abs. NRBC - 0.0 k/mm3 CBC w/ Differential (12/23/2024) ???WBC - 18.2 k/mm3???RBC - 5.53 m/mm3???Hgb - 16.4 Gm/dL???Hct - 48.2 %???MCV - 87.2 femtoliters???MCH - 29.7 pg???MCHC - 34.0 Gm/dL???Platelet Count - 333 k/mm3???RDW-SD - 42.2 femtoliters???MPV - 11.2 femtoliters???Nucleated RBC (Automated) - 0.0 #/100 WBC'S???Abs. NRBC - 0.0 k/mm3???Abs. Neut -14.7 k/mm3???Abs. Lymph - 1.7 k/mm3???Abs. Emmons - 1.5 k/mm3???Abs. Eo - 0.1 k/mm3???Abs. Baso - 0.1k/mm3???Neut % - 81.0 %???Lymph % - 9.4 %???Emmons % - 8.4 %???Eos % - 0.5 %???Baso % - 0.3 %???Imm Gran - 0.4 %???Abs. Imm Gran - 0.1 k/mm3 Comprehensive Metabolic Panel (12/23/2024) ???Sodium - 138 mmol/L???Potassium - 3.7 mmol/L???Chloride - 103 mmol/L???Bicarbonate Level - 19 mmol/L???Anion Gap - 16 mmol/L???Glucose Level - 142 mg/dL???BUN - 15 mg/dL???Creatinine-Blood - 1.47 mg/dL???Estimated GFR Creatinine - 61 ML/MIN/1.73 M2???Calcium - 10.3 mg/dL???Protein, Total - 7.9 Gm /dL???Albumin - 4.8 Gm/dL???AG Ratio - 1.5???Alkaline Phosphatase - 93 units/L???AST (SGOT) - 12 units/L???ALT (SGPT) - 8 units/L???Bilirubin, Total - 0.7 mg/dL Electrolytes (12/25/2024) ???Sodium - 138 mmol/L???Potassium - 4.2 mmol/L???Chloride - 103 mmol/L???Bicarbonate Level - 23 mmol/L???Anion Gap - 12 mmol/L Lactate Level (12/23/2024) ???Lactate - 2.1 mmol/L Magnesium Level (12/24/2024) ???Magnesium - 1.9 mg/dL Wound Superficial Culture W/ Gram Smear (12/23/2024) ???Aerobic Cult Source - SWAB???Superficial Wound Cult Results - Note You will be contacted within 72 hours with your results. Allergies (NKA means No Known Allergies) NKA Problems No qualifying data available Education Materials Below is the list of Educational Leaflet Providered with your Discharge Instructions. Valuables and Belongings I fully understand and agree that [facility] accepts no responsibility for all my personal property including clothing, toilet articles, radios, jewelry, dentures, hearing aids, rings, money, or any other property that is in my possession or is brought to me after admission. I understand certain valuables may be placed in a hospital safe for a short period of time. I understand that the hospital is not liable for loss or damage due to accident, fire, or other natural occurrence while said property is in the safe. I accept full responsibility for any personal property that I keep with me, and will not hold the hospital responsible in case of loss or disappearance. I acknowledge that i have been encouraged to send valuables and belongings home. ?? Review of Valuable and Belonging List: With patient Possessions released to: No Personal Devices. Date for Pt to Sign Valuables/Belongings: 12/24/24 11:42:00 ?? Other Discharge Information ? Case Management Discharge Plan?? Discharge Plan?? Discharge Agency Information?? Discharge Level of Care at Discharge: Homehealth/VNA [facility]1: [facility] Dis[facility] V[facility]/Hospice/Home Care: [facility] Service Categories #1: Intermediate ?? Service Comments #1: The nurses will visit you to teach you how to do your dressing changes. ?? Pulmonary Rehab Status?? Pulmonary Rehab Discharge Status?? Respiratory Rate: 18 br/min ? Common Emergency Awareness Tips IS IT A STROKE? Act FAST and Check for these signs: FACE Does the face look uneven? ARM Does one arm drift down? SPEECH Does their speech sound strange? TIME Call at any sign of stroke ?? Heart Attack Signs Chest discomfort: Most heart attacks involve discomfort in the center of the chest and lasts more than a few minutes, or goes away and comes back. It can feel like uncomfortable pressure, squeezing, fullness or pain. Discomfort in upper body: Symptoms can include pain or discomfort in one or both arms, back, neck, jaw or stomach. Shortness of breath: With or without discomfort. Other signs: Breaking out in a cold sweat, nausea, or lightheaded. Remember, MINUTES DO MATTER. If you experience any of these heart attack warning signs, call to get immediate medical attention! ?? Smoking can increase your chances of developing chronic health problems and can cause harmful effects to other family members in your house. If you smoke, you are strongly encouraged to quit. Please call [employer] at [phone] or [phone] ([phone]) or log in to [email or web address] for referrals to smoking cessation programs. ?? 579 Suicide & Crisis Lifeline is available 03/12 if you or someone you know needs to find a reason to keep living. By calling 312 you'll be connected to a skilled, trained counselor at a crisis center in your area. INPATIENT DISCHARGE INSTRUCTIONS SIGNATURE PAGE CROW DOWD Location:[facility] Registration Date and Time:12/23/2024 17:38 EDT Primary Care Physician: Josselin De León, Attending Physician: Daniel Lazcano MD, I NILE CROW, have received the above patient education materials/instructions and have verbalized understanding. If ambulance or transport services are being used I further acknowledge being given a choice of service. ?? If you need to contact me, please call me at this number: . Patient/Beauty Consultant Name: Patient/Beauty Consultant Signature: Relationship to Patient: Witness Name/Signature: Date: * Daniel Lazcano MD: PERFORM, SIGN, VERIFY Event Display: Patient Education Handout Authored Date: [id number] * Mónica Curry RN: PERFORM Event Display: Patient Education Leaflets Authored Date: [id number] Doxycycline ?? [id number] Doxycycline WHY is this medicine prescribed? Doxycycline is used to treat a variety of infections caused by certain types of bacteria. Doxycycline is also used to treat or prevent anthrax (a serious infection that may be spread on purpose as part of a bioterror attack) in people who may have been exposed to anthrax in the air and to treat plague and tularemia (serious infections that may be spread on purpose as part of a bioterror attack). It is also used to prevent malaria. Doxycycline is also used along with other medications to treat acne and rosacea (a skin disease that causes redness, flushing, and pimples on the face). Doxycycline(Oracea) is used only to treat pimples and bumps caused by rosacea. Doxycycline is in a class of medications called tetracycline antibiotics. It works to treat infections by preventing the growth andspread of bacteria. It works to treat acne by killing the bacteria that infects pores and decreasing a certain natural oily substance that causes acne. It works to treat rosacea by decreasing the inflammation that causes this condition. Antibiotics such as doxycycline will not work for colds, flu, or other viral infections. Using antibiotics when they are not needed increases your risk of getting an infection later that resists antibiotic treatment. HOW should this medicine be used? Doxycycline comes as a capsule, tablet, delayed-release tablet, and suspension (liquid) to take by mouth. Doxycycline is usually taken once or twice a day. Drink a full glass of water with each dose.If your stomach becomes upset when you take doxycycline, you may take it with food or milk. Talk with your doctor or pharmacist about the best way to take doxycycline. Follow the directions on your prescription label carefully, and ask your doctor or pharmacist to explain any part you do not understand. Take doxycycline exactly as directed. Do not take more or less of it or take it more often than prescribed by your doctor. Swallow the delayed-release tablets whole; do not split, chew, or crush them. If you cannot swallow certain delayed-release tablets (Doryx; generics) whole, carefully break up the tablet and sprinkle the contents of the tablet on a spoonful of cold or room temperature (not hot) applesauce. Be careful not to crush or damage any of the pellets while you are breaking up the tablet. Eat the mixture right away and swallow without chewing. If the mixture cannot be eaten right away it should be discarded. Shake the suspension well before each use to mix the medication evenly. If you are taking doxycycline for the prevention of malaria, start taking it 1 or 2 days before traveling to an area where there is malaria. Continue taking doxycycline each day you are in the area, and for 4 weeks after leaving the area. You should not take doxycycline for the prevention of malaria for more than 4 months. Continue to take doxycycline even if you feel well. Take all the medication until you are finished,unless your doctor tells you otherwise. One doxycycline product may not be able to be substituted for another. Be sure that you receive only the type of doxycycline that was prescribed by your doctor. Ask your pharmacist if you have any questions about the type of doxycycline you were given. Are there OTHER USES for this medicine? Doxycycline may also be used for the treatment of malaria. It may also be used to treat Lyme disease or to prevent Lyme disease in certain people who have been bitten by a tick. It may also be used to prevent sexually transmitted infections (gonorrhea, chlamydia, syphilis) in certain circumstances . Talk to your doctor about the possible risks of using this medication for your condition. This medication is sometimes prescribed for other uses; ask your doctor or pharmacist for more information. What SPECIAL PRECAUTIONS should I follow? Before taking doxycycline, ??? tell your doctor and pharmacist if you are allergic to doxycycline, minocycline (Dynacin, Minocin, Solodyn, Ximino), tetracycline (Achromycin V, in Pylera), demeclocycline, any other medications,sulfites, or any of the ingredients in doxycycline capsules, tablets, extended-release tablets, or s uspension. Ask your pharmacist for a list of the ingredients. ??? tell your doctor and pharmacist what prescription and nonprescription medications, vitamins, nutritional supplements, and herbal products you are taking or plan to take while taking doxycycline. Your doctor may need to change the doses of your medications or monitor you carefully for side effects. ??? tell your doctor and pharmacist what prescription and nonprescription medications, vitamins, and nutritional supplements you are taking or plan to take. Be sure to mention any of the following: acitretin; anticoagulants ('blood thinners') such as warfarin (Jantoven); bismuth subsalicylate; carbamazepine (Epitol, Tegretol, others); isotretinoin (Absorica, Clavaris, Myorisan, Zenatane); penicillin; phenobarbital; phenytoin (Phenytek); and proton pump inhibitors such as dexlansoprazole (Dexilant), esomeprazole (Nexium, in Vimovo), lansoprazole (Prevacid), omeprazole (Prilosec, Zegerid, in Talicia), pantoprazole (Protonix), and rabeprazole (Aciphex). Your doctor may need to change the doses of your medications or monitor youcarefully for side effects. ??? the following nonprescription or herbal products may interact with doxycycline: bismuth, omeprazole (Prilosec), and lansoprazole (Prevacid). Be sure to let your doctor and pharmacist know that you are taking these medications before you start taking doxycycline. Do not start any of these medications while taking doxycycline without discussing with your healthcare provider. ??? be aware that antacids containing magnesium, aluminum, or calcium, calcium supplements,iron products, and laxatives containing magnesium interfere with doxycycline, making it less effective. Take doxycycline 1???2 hours before or 1???2 hours after taking antacids, calcium supplements, and laxatives containing magnesium. Take doxycycline 2 hours before or 3 hours after iron preparations and vitamin products that contain iron. ??? tell your doctor if you have or have ever had lupus (condition in which the immune system attacks many tissues and organs including the skin, joints, blood, and kidneys), intracranial hypertension (pseudotumor cerebri; high pressure in the skull that may cause headaches, blurry or double vision, vision loss, and other symptoms), a yeast infection in your mouth or vagina, surgery on your stomach, asthma, or kidney or liver disease. Also, tell you doctor if you have diarrhea. ??? you should know that doxycycline may decrease the effectiveness of hormonal contraceptives ( control pills, patches, rings, or injections). Talk to your doctor aboutusing another form of control. ??? tell your doctor if you are or plan to become . If you become while taking doxycycline, call your doctor immediately. Doxycycline can harm the fetus. ??? tell your doctor if you are . Your doctor may tell you not to breastfeed during your treatment with doxycycline. ??? plan to avoid unnecessary or prolonged exposure to sunlight and to wear protective clothing, sunglasses, and sunscreen. Doxycycline may make your skin sensitive to sunlight. Tell your doctor right away if you get a sunburn. ??? you should know thatwhen you are receiving doxycycline for prevention of malaria, you should also use protective measures such as effective insect repellent, mosquito nets, clothing covering the whole body, and staying in well-screened areas, especially from early nighttime until jose. Taking doxycycline does not giveyou full protection against malaria. ??? you should know that when doxycycline is used during or in babies or children up to 8 years of age, it can cause the teeth to become permanently stai oanh and can cause problems with bone growth. Doxycycline should not be used in children under 8 years of age except for inhalational anthrax, [place] spotted fever, or if your doctor decides it is needed. What SPECIAL DIETARY instructions should I follow? Unless your doctor tells you otherwise, continue your normal diet. What should I do IF I FORGET to take a dose? Take the missed dose as soon as you remember it. However, if it is almost time for the next dose, skip the missed dose and continue your regular dosing schedule. Do not take a double dose to make up for a missed one. What SIDE EFFECTS can this medicine cause? Some side effects can be serious. If you experience any of these symptoms, call your doctor immediately: ??? headache ??? blurred vision, seeing double, or loss of vision ??? rash that may occur with fever or swollen glands ??? hives ??? skin redness, peeling or blistering ??? difficulty breathing or swallowing ??? swelling of the eyes, face, throat, tongue, or lips ??? unusual bleeding or bruising ??? watery or bloody stools, stomach cramps, or fever during treatment or for up to two or more monthsafter stopping treatment ??? a return of fever, sore throat, chills, or other signs of infection ??? joint pain ??? discoloration of permanent (adult) teeth Doxycycline may cause other side effects. Call your doctor if you have any unusual problems while taking this medication. If you experience a serious side effect, you or your doctor may send a report to the Food and Drug Administration's (FDA) MedWatch Adverse Event Reporting program online (https://www.fda.gov/Safety/MedWatch) or by phone ( ). What should I know about STORAGE and DISPOSAL of this medication? Keep this medication in the container it came in, tightly closed, and out of reach of children. Store it at room temperature and away from light and excess heat and moisture (not in the bathroom). Keep all medication out of sight and reach of children as many containers are not child-resistant. Always lock safety caps. Place the medication in a safe location ??? one that is up and away and outof their sight and reach. https://www.[employer].org Dispose of unneeded medications in a way so that pets, children, and other people cannot take them.Do not flush this medication down the toilet. Use a medicine take-back program. Talk to your pharmacist about take-back programs in your community. Visit the FDA's Safe Disposal of Medicines website h ttps://goo.gl/c4Rm4p for more information. What should I do in case of OVERDOSE? In case of overdose, call the poison control helpline at . Information is also available online at https://www.poisonhelp.org/help. If the victim has collapsed, had a seizure, has trouble breathing, or can't be awakened, immediately call emergency services at 911. What OTHER INFORMATION should I know? Keep all appointments with your doctor and laboratory. Your doctor will want to check your responseto doxycycline. Before having any laboratory test, tell your doctor and the laboratory personnel that you are taking doxycycline. Do not let anyone else take your medication. Your prescription is probably not refillable. If you still have symptoms of infection after you finish the doxycycline, call your doctor. Keep a written list of all of the prescription and nonprescription (gcju-uae-uqfpozt) medicines, vitamins, minerals, and dietary supplements you are taking. Bring this list with you each time you visit a doctor or if you are admitted to the hospital. You should carry the list with you in case of ajm rgencies. Brand Name(s): ??? Acticlate? Acticlate CAP? Doryx? Doryx MPC? Doxychel? Monodox? Oracea? Periostat? Vibra-Tabs? Vibramycin?? also available generically ? This branded product is no longer on the market. Generic alternatives may be available. ?? This report on medications is for your information only, and is not considered individual patient advice. Because of the changing nature of drug information, please consult your physician or pharmacist about specific clinical use. The [employer] represents that the information provided hereunder was formulated with a reasonable standard of care, and in conformity with professional standards in the field. The [employer] makes no representations or warranties, express or implied, including, but not limited to, any implied warranty of merchantability and/or fitness for a particular purpose, with respect to such information and specifically disclaims all such warranties. Users are advised that decisions regarding drug therapy are complex medical decisions requiring the independent, informed decision of an appropriate health life care planner, and the information is provided for informational purposes only. The entire monograph for a drug should be reviewed for a thorough understanding of the drug's actions, uses and side effects. The [employer] does not endorse or recommend the use of any drug.The information is not a substitute for medical care. AHFS?? Patient Medication Information???. ?? Copyright, 2023. The [employer]??, [address], [address], [place], [place]. All Rights Reserved. Duplication for commercial use must be authorized by [facility]. Selected Revisions: January 31, 2024. AHFS?? Patient Medication Information???. ?? Copyright, 2024 ?? Patient Care team information Care Team Personnel Name: Antonia Saldaña Position: S Outreach Member Role: Lifetime Consulting Physician Name: Josselin De León Position: Reference Physician Member Role: PCP Address: [address] [place] [address] Family Medicine [address] Telecom: Care Team Related Persons Name: MAYI DOWD Name: [facility] [place] Insurance Providers Guarantor name: HANS Health Plan Information #: 1 Payer: [facility]LY [employer] [facility] Payer Identifier: HANS Member Number: [id number] Group Number: [id number] Subscriber Identifier: [id number] Relationship to Subscriber: self Coverage Type: Medicare Managed Care (Includes Medicare Advantage Plans) Coverage Verification Date: HANS Telecom: HANS Address:
--- NOTE | 2024-12-31 14:15 | A.OFFPC_ITS ---
Vital Signs 12/31/24 14:21 Height 5 ft 7 in Weight 163 lb 2 oz BMI 25.5 BP 102/64 Blood Pressure Location Lt brachial Position Sitting Pulse 114 H Pulse Source Pulse Oximeter Temp 97.8 F Temp Source Temporal Artery Scan Pulse Oximetry (%) 96 Oxygen Delivery Method Room Air Intake Visit Reasons: [place] [facility] [place] Intake Note: Eliud presents in the office for an [place] [facility] [place] in [place]. Allergies No Known Allergies Allergy (Verified 12/31/24 14:18) Medication List - Last Reconciled 12/31/24 by RAMÓN Pineda atorvastatin 20 mg PO DAILY clonazepam mg PO doxycycline hyclate 100 mg PO BID fluoxetine 10 mg PO DAILY fluoxetine 20 mg PO DAILY olanzapine 10 mg PO BEDTIME olanzapine mg PO triamcinolone acetonide 0.5% 1 appl topical BID Tobacco use date assessed: 12/31/24 Dental Screening Dental Screen Date: 12/31/24 Did you have a dental visit in the last 12 months?: Yes Did you have a dental problem in the last 6 months where you did not have access to dental care?: No Was dental information given to patient?: Patient has dentist HPI HPI Comments History of Present Illness Details This is a 39-year-old male with a past medical history of schizophrenia, generalized anxiety disorder, depression and dyslipidemia presenting for hospital follow up. A month prior he presented to the ED with multiple sores to both distal legs after he was scratched by his cat. No cat bites. Initially seen at ED 11/18/2024 and discharged on a 7 day course of Augmentin for management of right lower extremity cellulitis. Presented again on 12/21/2024 with 4 day history of worsening redness and swelling of the left lower extremity. He also reported after finishing his antibiotic course that he was exposed to poison johanny and was placed on prednisone 12/05/2024 which he completed. At the easy he had tachycardia and stable BP and no fever. Lab work was notable for [place] [id number] with a left shift, bump in CRP and unremarkable sed rate at 12. He was discharged on a 7 day course of Bactrim with topical chlorhexidine soap. Return to the ED with worsening left lower extremity infection and ankle swelling which was draining purulent discharge. Patient did admit to excessively picking at wound. He was notably tachycardic with heart rate in the 140s which improved to 120s and stable BP though slightly hypertensive. He was started empirically on IV vancomycin and admitted. His CT of the left lower extremity showed subcutaneous cavity in the left calf with internal focus of gas and hyperdense material and a small sinus tract to the skin with surrounding cellulitis. There was no evidence of necrotizing fasciitis. He underwent incision and drainage in the ED and wound was packed. He was started on the IV vancomycin. Wound culture grew MRSA. He was switched to oral doxycycline. He took his last dose of that today. Creatinine trended down to 1.27 from 1.47. Discharge notes indicate wound was repacked along with dressing change that he would need every 2-3 days for the next week or so. [facility] arranged wound care and discharge. Patient reports it does look a lot better. The swelling is better. It is not very painful. No fevers or chills. He says that the nurse repacked it today. His heart rate is mildly elevated today, and he attributes this to anxiety and trying to process all of the information today and having caffeine before the visit. Denies fevers, chills and lethargy. Denies chest pain and shortness of breath. ROS: Constitutional: No unexplained weight loss, fever, chills, fatigue or night sweats. Gastrointestinal: No anorexia, nausea, vomiting or diarrhea. No abdominal pain Neurologic: No headache, dizziness, syncope Skin: See HPI Physical exam: Constitutional: Alert, in no distress. Respiratory: Clear to auscultation. Cardiovascular: S1 S2 regular. No murmurs. Neurologic: No focal neurological deficits. Extremities: Warm and well perfused. No clubbing, cyanosis or edema. Intact lower extremity pulses bilaterally. 2.5 cm x 1 cm open wound on the left lower extremity with packing material in place and some bloody and yellow discharge on the packing material. The edges of the wound are pink. Mild edema. No detectable subcutaneous emphysema on exam. Psychiatric: Cooperative [facility] Medical History (Updated 12/31/24 @ 14:41 by RAMÓN Pineda) Leg wound, left Left leg cellulitis Surgical History (Updated 04/30/24 @ 14:55 by Briseida Fortune CMA) No pertinent past surgical history Family History Mother Lung cancer Brother Substance abuse Social History (Updated 12/31/24 @ 14:21 by Gill Rangel MA) Housing: Apartment Alcohol intake: never Patient Tobacco Use Status: Former Tobacco user Cigarettes Per Day: 3 Years Smoked: 2 e-Cigarette/Vaping Use: Former Use Second Hand Smoke Exposure: No Substance Use Type: Marijuana service: No Current occupational status: employed and unemployed Current occupation: SS/Disability Cognitive needs: No Hearing needs: No Vision needs: No Questionnaire Thrive Questionnaire Date Thrive assessed: 09/03/24 I am a: Patient What is your living situation today?: I have a steady place to live Within the past 12 months, did the food you bought not last and you didn't have the money to get more?: Often true Within the past 12 months, did you worry whether your food would run out before you got money to buy more?: Often true Do you have trouble paying for medicines?: No Do you have trouble getting transportation to medical appointments?: No Do you have trouble paying your heating and electricity bill?: Yes Do you have trouble taking care of your child, family member or friend?: No Do you have trouble with day-to-day activities such as bathing, preparing meals, shopping, managing finances, etc.?: Yes Are you currently unemployed and looking for a job?: I choose not to answer this question Are you interested in more education?: I choose not to answer this question Please select the resources that you would like help with: None Currently or been in a relationship where the following occur: I choose not to answer THRIVE Score: 3 Physical exam (Primary Care) Vital Signs: Last Vital Signs Temp 97.8 F 12/31/24 14:21 Pulse 114 H 12/31/24 14:21 BP 102/64 12/31/24 14:21 Pulse Ox 96 12/31/24 14:21 Oxygen Delivery Method Room Air 12/31/24 14:21 BMI result Body Mass Index 25.5 Tobacco/Smoking Status: Tobacco use Status Tobacco use date assessed 12/31/24 12/31/24 14:26 Patient Tobacco Use Status Former Tobacco user 12/31/24 14:21 e-Cigarette/Vaping Use Former Use 12/31/24 14:21 Thrive Assessment: Date of Thrive Assessment Date Thrive assessed 09/03/24 12/31/24 14:17 Currently or been in a relationship where the following occur: I choose not to answer Coding Level of Care Code Est Pt Level 4 (30120) Complex EM visit Add On G2211 Diagnoses Left leg cellulitis L03.116 Assessment & Plan Assessment & Plan (1) Left leg cellulitis: Code(s): L03.116 - Cellulitis of left lower limb Category: Medical Plan Check CBC and BMP today. Wound examined and dressed today. I am going to extend the course of doxycycline by an additional 7 days. Patient will be brought back in for a recheck. Side effects and administration of antibiotic reviewed. [facility] is doing dressing changes every 2-3 days. Referring patient to Wound Care. Patient states tetanus immunization is up-to-date. Warning signs warranting re-evaluation at the ED reviewed. RTC 1 week for wound check. Orders: Orders Complete Blood Count Auto Diff Today L03.116 - Cellulitis of left lower limb Basic Metabolic Panel Today L03.116 - Cellulitis of left lower limb Referrals Wound Care Referral S81.802A - Unspecified open wound, left lower leg, initial encounter Medications: New doxycycline hyclate 100 mg PO BID 14 tabs 0RF
[2024-12-31 14:21] VITALS: BP 102/64; PULSE 114; TEMP 36.6; O2SAT 96; BMI 25.5
== END 2024-12-31 14:50 | disposition home or self-care (01) ==
LOC: HO.HMCFM 14:10
PROVIDERS: PCP Physician Assistant Medical; Visit Provider Physician Assistant Medical
DX: L03.116 Cellulitis of left lower limb (principal)

== ENCOUNTER 2024-12-31 14:10 | Outpatient (REF) | payer OTHER, SELFPAY ==
--- OUTSIDE RECORDS SUMMARY | 2024-12-31 14:54 | XMS_ITS | Encounter Summary ---
Author Organization [facility] Address [address] [place] [address] Care Team Providers Care Dust Collector Attendant Name Role Phone Lidia Pitt MD Primary Care Provider Unavailable Roxana Avila MD Primary Care Provider Unavailable Jackson Miguel DO Primary Care Provider UnavailIliana Minaya MD Primary Care Provider Un available Reason for Visit * Reason Onset Date Comments TEST RESULTS 03/16/2014 Encounter Details Date Type Department Care Team Description 03/16/2014 Telephone Adult Medicine - [address] [address] Lidia Pitt MD TEST RESULTS Social History Tobacco Use Types Packs/Day Years Used Date Smoking Tobacco: Former Cigarettes 0.5 Smokeless Tobacco: Never Comments:started age 16 yr, never quit before Alcohol Use Standard Drinks/Week Comments Yes 0 (1 standard drink = 0.6 oz pur e alcohol) 2-3 times per yr Sex Assigned at Date Recorded Not on file Job Start Date Occupation Industry Not on file Not on file Not on file documented as of this encounter Miscellaneous Notes * Telephone Encounter - Antonia Saldaña M.A. - 03/16/2014 4:18 PM EST Attempted to call pt. No answer. Lmtcb Please inform pt letter sent, but everything was normal * Telephone Encounter - Lidia Pitt MD - 03/16/2014 4:01 PM EST See letter sent 03/15 * Telephone Encounter - Antonia Saldaña M.A. - 03/16/2014 3:57 PM EST Please review and advise * Telephone Encounter - Mikala Jimenez - 03/16/2014 1:28 PM EST Inform patient: ANY URGENT OR ABNORMAL RESULTS WIILL RESULT IN A CALL BACK TO THE PATIENT IVÁN. Type of test: :blood work Date test was performed: 03/11/2014 Where was the test performed: [facility] Who ordered this test?: dr gonzalez Is the doctor here today?: NO Can the message wait until the doctor returns?: YES IF PATIENT'S PCP IS NOT IN INSTRUCT PATIENT THAT THEY WILL RECEIVE A CALL BACK WHEN THE PCP IS IN THE OFFICE NEXT. documented in this encounter Plan of Treatment Not on file documented as of this encounter Visit Diagnoses Not on filedocumented in this encounter Care Teams Dust Collector Attendant Relationship Specialty Start Date End Date Raul-iLdia Hudson MD PCP - General Internal Medicine 11/02/13 Roxana Avila MD PCP - General Internal Medicine 07/30/1405/13 Jackson Miguel DO PCP - General Internal Medicine 05/23/21 10/24/23 Iliana Moses MD PCP - General Internal Medicine 10/25/23 documented as of this encounter
[2024-12-31 17:54] LABS: MANUAL DIFF FLAG NO
[2024-12-31 17:58] LABS: Hematocrit 42.3 % (42.0-52.0); Hemoglobin 14.0 g/dl (14.0-18.0); Imm Gran Abs Auto 0.04 X10*3/uL (0.00-0.03); Imm Gran Pct Auto 0.4 % (0.0-0.4); Lymphocytes Absolute Auto 2.4 X10*3/uL (1.2-4.9); Mean Corpuscular HGB Conc 33.1 g/dl (31.0-36.0); Mean Corpuscular Hemoglobin 29.5 pg (27.0-33.0); Mean Corpuscular Volume 89.1 fL (80.0-98.0); NRBC Abs Auto 0.000 X10*3/uL (0.0-0.012); NRBC Pct Auto 0.0 /100WBC (0.0-0.2); Platelet Count 321 X10*3/uL (160-400); Red Blood Count 4.75 X10*6/uL (4.60-5.80); White Blood Count 9.5 X10*3/uL (4.8-10.8)
[2024-12-31 18:16] LABS: Anion Gap 15 (12-20); Blood Urea Nitrogen 10 mg/dL (9-16); Calcium 9.3 mg/dL (8.4-10.2); Carbon Dioxide 22 mmol/L (22-29); Chloride 108 mmol/L (96-108); Cholesterol 159 mg/dL (<200); Estimated Glomerular Filt Rate > 60; HDL Cholesterol 49 mg/dL (>40); Potassium 4.0 mmol/L (3.3-5.1); Sodium 141 mmol/L (135-145); Triglycerides 255 mg/dL (<150)
[2024-12-31 18:30] LABS: Prostate Specific Antigen 0.65 ng/mL (<0.05-4.0)
== END 2024-12-31 14:11 | disposition home or self-care (01) ==
LOC: HO.WFDLDS 14:10
PROVIDERS: PCP Physician Assistant Medical; Visit Provider Physician Assistant Medical
DX: Z12.5 Encounter for screening for malignant neoplasm of prostate (principal); L03.116 Cellulitis of left lower limb; E78.5 Hyperlipidemia, unspecified; Z79.2 Long term (current) use of antibiotics; Z79.899 Other long term (current) drug therapy
CPT/HCPCS: 36415; 80048; 80061; 84153; 85025; 99212

== ENCOUNTER 2025-01-07 13:53 | Outpatient (AMB) | payer OTHER, SELFPAY ==
--- NOTE | 2025-01-07 14:19 | A.OFFPC_ITS ---
Vital Signs 01/07/25 14:23 01/07/25 14:46 Height 5 ft 7 in Weight 163 lb 2 oz BMI 25.5 BP 118/90 H 116/88 Blood Pressure Location Lt brachial Position Sitting Pulse 96 Pulse Source Pulse Oximeter Temp 98.6 F Temp Source Temporal Artery Scan Pulse Oximetry (%) 98 Oxygen Delivery Method Room Air Intake Visit Reasons: recheck leg wound Intake Note: Eliud presents in the office today for a recheck of his leg would. Allergies No Known Allergies Allergy (Verified 01/07/25 14:21) Medication List - Last Reconciled 01/07/25 by RAMÓN Pineda atorvastatin 20 mg PO DAILY clonazepam mg PO doxycycline hyclate 100 mg PO BID fluoxetine 40 mg PO DAILY olanzapine 5 mg PO DAILY olanzapine 10 mg PO BEDTIME triamcinolone acetonide 0.5% 1 appl topical BID Tobacco use date assessed: 01/07/25 Dental Screening Dental Screen Date: 01/07/25 Did you have a dental visit in the last 12 months?: Yes Did you have a dental problem in the last 6 months where you did not have access to dental care?: No Was dental information given to patient?: Patient has dentist HPI HPI Comments History of Present Illness Details This is a 39-year-old male with a past medical history of schizophrenia, generalized anxiety disorder, depression and dyslipidemia presenting for a wound check. Documented at his visit a week ago: A month prior he presented to the ED with multiple sores to both distal legs after he was scratched by his cat. No cat bites. Initially seen at ED 11/18/2024 and discharged on a 7 day course of Augmentin for management of right lower extremity cellulitis. Presented again on 12/21/2024 with 4 day history of worsening redness and swelling of the left lower extremity. He also reported after finishing his antibiotic course that he was exposed to poison johanny and was placed on prednisone 12/05/2024 which he completed. At the easy he had tachycardia and stable BP and no fever. Lab work was notable [place] [id number] with a left shift, bump in CRP and unremarkable sed rate at 12. He was discharged on a 7 day course of Bactrim with topical chlorhexidine soap. Return to the ED with worsening left lower extremity infection and ankle swelling which was draining purulent discharge. Patient did admit to excessively picking at wound. He was notably tachycardic with heart rate in the 140s which improved to 120s and stable BP though slightly hypertensive. He was started empirically on IV vancomycin and admitted. His CT of the left lower extremity showed subcutaneous cavity in the left calf with internal focus of gas and hyperdense material and a small sinus tract to the skin with surrounding cellulitis. There was no evidence of necrotizing fasciitis. He underwent incision and drainage in the ED and wound was packed. He was started on the IV vancomycin. Wound culture grew MRSA. He was switched to oral doxycycline. He took his last dose of that today. Creatinine trended down to 1.27 from 1.47. Discharge notes indicate wound was repacked along with dressing change that he would need every 2-3 days for the next week or so. VNA arranged wound care and discharge. Patient says that he is doing a lot better. It continues to improve. He denies pain. Denies fevers and chills. VNA is coming daily for dressing change. He has an appointment with wound care on 01/12/2025. He is taking doxycycline. Denies side effects on the antibiotic. ROS: Constitutional: No unexplained weight loss, fever, chills, fatigue or night sweats. Gastrointestinal: No anorexia, nausea, vomiting or diarrhea. No abdominal pain Neurologic: No headache, dizziness, syncope Skin: See HPI Physical exam: Constitutional: Alert, in no distress. Respiratory: Clear to auscultation. Cardiovascular: S1 S2 regular. No murmurs. Neurologic: No focal neurological deficits. Extremities: Warm and well perfused. No clubbing, cyanosis or edema. Intact lower extremity pulses bilaterally. Dime sized open wound on left lower extremity with packing material in place. No discharge. The edges of the wound are pink. No edema. No detectable subcutaneous emphysema on exam. Psychiatric: Cooperative [facility] Medical History (Updated 12/31/24 @ 14:41 by RAMÓN Pineda) Leg wound, left Left leg cellulitis Surgical History (Updated 04/30/24 @ 14:55 by Briseida Fortune CMA) No pertinent past surgical history Family History Mother Lung cancer Brother Substance abuse Social History (Updated 01/07/25 @ 14:23 by Gill Rangel MA) Housing: Apartment Alcohol intake: never Patient Tobacco Use Status: Former Tobacco user Cigarettes Per Day: 3 Years Smoked: 2 e-Cigarette/Vaping Use: Former Use Second Hand Smoke Exposure: No Substance Use Type: Marijuana service: No Current occupational status: employed and unemployed Current occupation: SS/Disability Cognitive needs: No Hearing needs: No Vision needs: No Questionnaire Thrive Questionnaire Date Thrive assessed: 09/03/24 I am a: Patient What is your living situation today?: I have a steady place to live Within the past 12 months, did the food you bought not last and you didn't have the money to get more?: Often true Within the past 12 months, did you worry whether your food would run out before you got money to buy more?: Often true Do you have trouble paying for medicines?: No Do you have trouble getting transportation to medical appointments?: No Do you have trouble paying your heating and electricity bill?: Yes Do you have trouble taking care of your child, family member or friend?: No Do you have trouble with day-to-day activities such as bathing, preparing meals, shopping, managing finances, etc.?: Yes Are you currently unemployed and looking for a job?: I choose not to answer this question Are you interested in more education?: I choose not to answer this question Please select the resources that you would like help with: None Currently or been in a relationship where the following occur: I choose not to answer THRIVE Score: 3 Physical exam (Primary Care) Vital Signs: Last Vital Signs Temp 98.6 F 01/07/25 14:23 Pulse 96 01/07/25 14:23 BP 118/90 H 01/07/25 14:23 Pulse Ox 98 01/07/25 14:23 Oxygen Delivery Method Room Air 01/07/25 14:23 BMI result Body Mass Index 25.5 Tobacco/Smoking Status: Tobacco use Status Tobacco use date assessed 01/07/25 01/07/25 14:27 Patient Tobacco Use Status Former Tobacco user 01/07/25 14:27 e-Cigarette/Vaping Use Former Use 01/07/25 14:27 Thrive Assessment: Date of Thrive Assessment Date Thrive assessed 09/03/24 01/07/25 14:27 Currently or been in a relationship where the following occur: I choose not to answer Coding Level of Care Code Est Pt Level 4 (11168) Complex EM visit Add On G2211 Diagnoses Left leg cellulitis L03.116 Assessment & Plan Assessment & Plan (1) Left leg cellulitis: Code(s): L03.116 - Cellulitis of left lower limb Category: Medical Plan The patient will complete the course of doxycycline.Side effects and administration of antibiotic reviewed. VNA is doing dressing changes daily. He has an appointment with wound care next week. Warning signs warranting re-evaluation at the ED reviewed. Return in 2 weeks for a wound check.
[2025-01-07 14:23] VITALS: BP 118/90; PULSE 96; TEMP 37; O2SAT 98; BMI 25.5
--- OUTSIDE RECORDS SUMMARY | 2025-01-07 14:44 | XMS_ITS | Encounter Summary ---
Author Organization [facility] Address [address] [place] [address] Care Team Providers Care Quality Coordinator Name Role Phone Roxana Avila MD Primary Care Provider Unavailable Jackson Miguel DO Primary Care Provider Unavaila ble Iliana Moses MD Primary Care Provider Un available Encounter Details Date Type Department Care Team Description 02/23/2015 Mill Control Operator Report Medical Records [address] [place] [address] Eliud Payne Social History Tobacco Use Types Packs/Day Years Used Date Smoking Tobacco: Former Cigarettes 0.5 Smokeless Tobacco: Former Comments:started age 16 yr, never quit before Alcohol Use Standard Drinks/Week Comments Yes 0 (1 standard drink = 0.6 oz pur e alcohol) 2-3 times per yr Sex Assigned at Date Recorded Not on file Job Start Date Occupation Industry Not on file Not on file Not on file documented as of this encounter Plan of Treatment Not on file documented as of this encounter Visit Diagnoses Not on filedocumented in this encounter Care Teams Quality Coordinator Relationship Specialty Start Date End Date Roxana Avila MD PCP - General Internal Medicine 07/30/1405/13 Jackson Miguel DO PCP - General Internal Medicine 05/23/21 10/24/23 Iliana Moses MD PCP - General Internal Medicine 10/25/23 documented as of this encounter
--- OUTSIDE RECORDS SUMMARY | 2025-01-07 14:44 | XMS_ITS | Encounter Summary ---
Author Organization [facility] Address [address] [place] [address] Care Team Providers Care Office Messenger Name Role Phone Lidia Pitt MD Primary Care Provider Unavailable Roxana Avila MD Primary Care Provider Unavailable Jackson Miguel DO Primary Care Provider UnavailIliana Minaya MD Primary Care Provider Un available Reason for Visit * Reason Onset Date Comments TEST RESULTS 03/16/2014 Encounter Details Date Type Department Care Team Description 03/16/2014 Telephone Adult Medicine - [address] [address] Lidia Pitt MD TEST RESULTS Social History [...] on filedocumented in this encounter Care Teams Office Messenger Relationship Specialty Start Date End Date Raul-Lidia Hudson MD PCP - General Internal Medicine 11/02/13 Roxana Avila MD PCP - General Internal Medicine 07/30/1405/13 Jackson Miguel DO PCP - General Internal Medicine 05/23/21 10/24/23 Iliana Moses MD PCP - General Internal Medicine 10/25/23 documented as of this encounter
--- OUTSIDE RECORDS SUMMARY | 2025-01-07 14:44 | XMS_ITS | Encounter Summary ---
Author Organization [facility] Address [address] [place] [address] Care Team Providers Care Classified Advertising Manager Name Role Phone Lidia Pitt MD Primary Care Provider Unavailable Roxana Avila MD Primary Care Provider Unavailable Jackson Miguel DO Primary Care Provider UnavailIliana Minaya MD Primary Care Provider Un available Reason for Visit * Reason Onset Date Comments pain, stomach 03/16/2014 Encounter Details Date Type Department Care Team Description 03/16/2014 Telephone Adult Medicine [address] [address] Lidia Pitt MD pain, stomach Social History Tobacco Use Types Packs/Day Years [...] encounter Miscellaneous Notes * Telephone Encounter - Mikala Jimenez - 03/16/2014 4:29 PM EST error documented in this encounter Plan of Treatment Not on file documented as of this encounter Visit Diagnoses Not on filedocumented in this encounter Care Teams Classified Advertising Manager Relationship Specialty Start Date End Date Lidia Pitt MD PCP - General Internal Medicine 11/02/13 Roxana Avila MD PCP - General Internal Medicine 07/30/1405/13 Jackson Miguel DO PCP - General Internal Medicine 05/23/21 10/24/23 Iliana Moses MD PCP - General Internal Medicine 10/25/23 documented as of this encounter
--- OUTSIDE RECORDS SUMMARY | 2025-01-07 14:44 | XMS_ITS | Encounter Summary ---
Author Organization [facility] Address [address] [place] [address] Care Team Providers Care Steward/Stewardess Night Name Role Phone Jackson Miguel DO Primary Care Provider Unavaila ble Iliana Moses MD Primary Care Provider Un available Reason for Visit * Reason Onset Date Comments LAB WORK 08/01/2023 Encounter Details Date Type Department Care Team Description 08/01/2023 Telephone Adult Medicine - [address] [address] Jackson Miguel DO LAB WORK Social History Tobacco Use Types Packs/Day Years Used Date Smoking Tobacco: Former Cigarettes 0.5 Smokeless Tobacco: Never Comments:started age 16 yr, never quit before Alcohol Use Standard Drinks/Week Comments No 0 (1 standard drink = 0.6 oz pur e alcohol) Sex Assigned at Date Recorded Not on file Job Start Date Occupation Industry Not on file Not on file Not on file documented as of this encounter Miscellaneous Notes * Telephone Encounter - Skylar Mejia M.A. - 08/01/2023 1:51 PM EDT Spoke to patient and message was given below. * Telephone Encounter - Jackson Miguel DO - 08/01/2023 11:34 AM EDT I will wait for the lab till I see the patient * Telephone Encounter - Misty Mtz - 08/01/2023 9:41 AM EDT Patient calling to request labs be ordered: What lab work is patient requesting? Routine lab work Does patient have an upcoming appointment, if yes when and WITH WHO? yes /3 with fiorella Patients PCP is: Jackson Miguel documented in this encounter Plan of Treatment Not on file documented as of this encounter Visit Diagnoses Not on filedocumented in this encounter Care Teams Steward/Stewardess Night Relationship Specialty Start Date End Date Jackson Miguel DO PCP - General Internal Medicine 05/23/21 10/24/23 Iliana Moses MD PCP - General Internal Medicine 10/25/23 documented as of this encounter
--- OUTSIDE RECORDS SUMMARY | 2025-01-07 14:44 | XMS_ITS | Encounter Summary ---
Author Organization [facility] Address [address] [place] [address] Care Team Providers Care Hot Frame Tender Name Role Phone Roxana Avila MD Primary Care Provider Unavailable Jackson Miguel DO Primary Care Provider UnavailIliana Minaya MD Primary Care Provider Un available Reason for Visit * Reason Onset Date Comments Provider Call Back 07/11/2020 Encounter Details Date Type Department Care Team Description 07/11/2020 Telephone Adult Medicine - [address] [address] Roxana Avila MD Provider Call Back Social History Tobacco Use Types Packs/Day Years Used Date Smoking Tobacco: Former Cigarettes 0.5 Smokeless Tobacco: Never Comments:started age 16 yr, never quit before Alcohol Use Standard Drinks/Week Comments No 0 (1 standard drink = 0.6 oz pur e alcohol) Sex Assigned at Date Recorded Not on file Job Start Date Occupation Industry Not on file Not on file Not on file COVID-19 Exposure Response Date Recorded In the last month, have you been in contact with someone who was confirmed or suspected to have Coronavirus / COVID-19? No / Unsure 07/13/2020 1:04 PM EST documented as of this encounter Miscellaneous Notes * Telephone Encounter - Roxana Avila MD - 07/11/2020 1:34 PM EST That depends on the labs. I will discuss after the labs are done. * Telephone Encounter - Antonia Grayson - 07/11/2020 11:28 AM EST Caller requesting call back from provider: Is the caller the patient? YES If caller is not the patient, what is the callers name? N/A Callers relationship to patient? N/A If person calling is not the patient themselves, is there a verbal release in FYI or permanent comments for this person: NO Reason for call back: Pt called asking for a call back re: cholesterol. He is asking if his labs improve in August will he need to continue his cholesterol med? Caller offered to speak with the nurse for assistance: YES Response: Patient offered to speak with nurse for assistance and patient agreed. Message forwarded to nurse. documented in this encounter Plan of Treatment Not on file documented as of this encounter Visit Diagnoses Not on filedocumented in this encounter Care Teams Hot Frame Tender Relationship Specialty Start Date End Date Roxana Avila MD PCP - General Internal Medicine 07/30/1405/13 Jackson Miguel DO PCP - General Internal Medicine 05/23/21 10/24/23 Iliana Moses MD PCP - General Internal Medicine 10/25/23 documented as of this encounter
--- OUTSIDE RECORDS SUMMARY | 2025-01-07 14:44 | XMS_ITS | Encounter Summary ---
Author Organization [facility] Address [address] [place] [address] Care Team Providers Care Office Messenger Name Role Phone Iliana Moses MD Primary Care Provider Un available Reason for Visit * Reason Onset Date Comments er follow up 11/20/2023 [facility] Encounter Details Date Type Department Care Team Description 11/20/2023 Telephone Adult Medicine [facility] [address] [place] [address] Iliana Moses MD er follow up ([facility]) Social History Tobacco Use Types Packs/Day Years [...] encounter Miscellaneous Notes * Telephone Encounter - Sabrina Lundberg M.A. - 11/20/2023 2:35 PM EDT Notes obtained and left in providers folder. * Telephone Encounter - Sabrina Aguilar - 11/20/2023 1:42 PM EDT ER follow-up appointment booked YES 12/13/23 If ER or UC follow up, can be booked with [facility] or . If hospital admission follow up MUST be booked with a physician Appointment time: 2:30PM Provider visit is scheduled with: Owen Marie PA-C Hospital/ center patient was treated at: [facility] Date of visit: unknown Was this only an ER/UC visit or was the patient admitted to the hospital? ER visit onlyER visit only If patient was admitted what was the date of discharge? N/A Reason/diagnosis for visit or stay: Skin infection Was visit or stay related to an injury? NO If yes, what was the date of injury (DOI)? N/A If yes, was the injury due to N/A Tests performed: Lab: NO X-ray: NO EKG: NO Other tests. If yes, what?; N/A documented in this encounter Plan of Treatment Not on file documented as of this encounter Visit Diagnoses Not on filedocumented in this encounter Care Teams Office Messenger Relationship Specialty Start Date End Date Iliana Moses MD PCP - General Internal Medicine 10/25/23 documented as of this encounter
--- OUTSIDE RECORDS SUMMARY | 2025-01-07 14:44 | XMS_ITS | Encounter Summary ---
Author Organization [facility] Address [address] [place] [address] Care Team Providers Care Language Tutor Name Role Phone Radha Kunz DO Primary Care Provider Unavailabl e Lidia Pitt MD Primary Care Provider Unavailable Roxana Avila MD Primary Care Provider Unavailable Jacskon Miguel DO Primary Care Provider Unavaila ble Iliana Moses MD Primary Care Provider Un available Encounter Details Date Type Department Care Team Description 01/07/2012 Release of Information Medical Records [address] [place] [id number] Abstract, Provider Social History Tobacco Use Types Packs/Day Years Used Date Smoking Tobacco: Every Day Cigarettes 0.5 Smokeless Tobacco: Never Comments:started age [...] on filedocumented in this encounter Care Teams Language Tutor Relationship Specialty Start Date End Date Radha Kunz DO PCP - General Internal Medicine 12/31/11 11/01/13 Lidia Pitt MD PCP - General Internal Medicine 11/02/13 Roxana Avila MD PCP - General Internal Medicine 07/30/1405/13 Jackson Miguel DO PCP - General Internal Medicine 05/23/21 10/24/23 Iliana Moses MD PCP - General Internal Medicine 10/25/23 documented as of this encounter
--- OUTSIDE RECORDS SUMMARY | 2025-01-07 14:44 | XMS_ITS | Encounter Summary ---
Author Organization [facility] Address [address] [place] [address] Care Team Providers Care Global Transportation Manager Name Role Phone Radha Kunz DO Primary Care Provider UnavailLidia Hull MD Primary Care Provider Unavailable Roxana Avila MD Primary Care Provider Unavailable Jackson Miguel DO Primary Care Provider Unavaila Iliana Delgadillo MD Primary Care Provider Un available Reason for Visit * Reason Onset Date Comments medication problems 03/22/2013 Encounter Details Date Type Department Care Team Description 03/22/2013 Telephone Adult Urgent Care - [address] [address] Radha Kunz DO medication problems Social History Tobacco Use Types Packs/Day Years [...] encounter Miscellaneous Notes * Telephone Encounter - Jae Harper L.P.NThang - 03/22/2013 12:45 PM EST Unable able to reach patient mail box is full Reviewed chart Eric is ordered by an outside provider He has been on this medication for several years he also take Seroquel at Called pharmacy He gets this RX from Dr. Taylor Patient will be instructed to call Dr. Taylor * Telephone Encounter - Skylar Boland - 03/22/2013 12:42 PM EST Symptoms patient is presenting: pt has started taking klonopin again and he is vomiting please advise How long has patient had these symptoms?: today PCP: Radha Kunz [place] Product Type: MEDICARE [id number] documented in this encounter Plan of Treatment Not on file documented as of this encounter Visit Diagnoses Not on filedocumented in this encounter Care Teams Global Transportation Manager Relationship Specialty Start Date End Date Radha [...]
--- OUTSIDE RECORDS SUMMARY | 2025-01-07 14:44 | XMS_ITS | Encounter Summary ---
Author Organization [facility] Address [address] [place] [address] Care Team Providers Care Gas Stove Servicer Helper Name Role Phone Jackson Miguel DO Primary Care Provider Jasona Iliana Delgadillo MD Primary Care Provider Un available Reason for Visit * Reason Onset Date Comments TEST RESULTS 02/26/2023 X-RAY EXAM OF EL BOW, COMPLETE Encounter Details Date Type Department Care Team Description 02/26/2023 Telephone Adult Medicine - [address] [address] Jackson Miguel DO TEST RESULTS (X-RAY EXAM OF ELBOW, COMPLETE ) Social History Tobacco Use Types Packs/Day Years [...] Exposure Response Date Recorded In the last 10 days, have yo u been in contact with someone who was confirmed or suspected to have Coronavirus/COVID-19? No / Unsure 02/25/2023 1:29 PM EDT documented as of this encounter Miscellaneous Notes * Telephone Encounter - Skylar Mejia M.A. - 03/01/2023 3:27 PM EDT Pt already was notified about elbow x-ray * Telephone Encounter - Tika Angelo - 03/01/2023 2:40 PM EDT Patient reached back out-Would like a call back * Telephone Encounter - Skylar Mejia M.A. - 02/26/2023 12:46 PM EDT Pt saw Elina Sunday Liriano and pt notified * Telephone Encounter - Misty Mtz - 02/26/2023 11:51 AM EDT Inform patient: ANY URGENT OR ABNORMAL RESULTS WIILL RESULT IN A CALL BACK TO THE PATIENT IVÁN. Type of test: :X-RAY EXAM OF ELBOW, COMPLETE Date test was performed: 02/25/23 Where was the test performed: Jackson Miguel Who ordered this test?: [email or web address] Is the doctor here today?: YES Can the message wait until the doctor returns?: NO IF PATIENT'S PCP IS NOT IN INSTRUCT PATIENT THAT THEY WILL RECEIVE A CALL BACK WHEN THE PCP IS IN THE OFFICE NEXT. documented in this encounter Plan of Treatment Not on file documented as of this encounter Visit Diagnoses Not on filedocumented in this encounter Care Teams Gas Stove Servicer Helper Relationship Specialty Start Date End Date Jackson Miguel DO PCP - General Internal Medicine 05/23/21 10/24/23 Iliana Moses MD PCP - General Internal Medicine 10/25/23 documented as of this encounter
--- OUTSIDE RECORDS SUMMARY | 2025-01-07 14:44 | XMS_ITS | Encounter Summary ---
Author Organization [facility] Address [address] [place] [address] Care Team Providers Care Director Product Development Name Role Phone Roxana Avila MD Primary Care Provider Unavailable Jackson Miguel DO Primary Care Provider Unavaila ble Iliana Moses MD Primary Care Provider Un available Encounter Details Date Type Department Care Team Description 10/12/2015 Hospital Medical Records [address] [place] [address] Stan Baumann Social History Tobacco Use Types Packs/Day Years [...] on filedocumented in this encounter Care Teams Director Product Development Relationship Specialty Start Date End Date Roxana Avila MD PCP - General Internal Medicine 07/30/1405/13 Jackson Miguel DO PCP - General Internal Medicine 05/23/21 10/24/23 Iliana Moses MD PCP - General Internal Medicine 10/25/23 documented as of this encounter
--- OUTSIDE RECORDS SUMMARY | 2025-01-07 14:44 | XMS_ITS | Encounter Summary ---
Author Organization [facility] Address [address] [place] [address] Care Team Providers Care Service Restorer Emergency Name Role Phone Radha Kunz DO Primary Care Provider Unavailabl e Lidia Pitt MD Primary Care Provider Unavailable Roxana Avila MD Primary Care Provider Unavailable Jackson Miguel DO Primary Care Provider Unavaila ble Iliana Moses MD Primary Care Provider Un available Encounter Details Date Type Department Care Team Description 01/10/2012 Transfer Records Medical Records [address] [place] [id number] Abstract, Provider Social History Tobacco Use Types [...] on filedocumented in this encounter Care Teams Service Restorer Emergency Relationship Specialty Start Date End Date Radha [...]
--- OUTSIDE RECORDS SUMMARY | 2025-01-07 14:44 | XMS_ITS | Encounter Summary ---
Author Organization [facility] Address [address] [place] [address] Care Team Providers Care Stamp Pad Maker Name Role Phone Iliana Moses MD Primary Care Provider Un available Reason for Referral * INTERNAL (Routine) - Closed Specialty Diagnoses / Procedures Referred By Contac t Referred To Contact ORTHOPEDICS / Orthopedic Procedures REFERRAL TO ORTHOPEDICS (IN NETWORK) Maegan Cohen PA-C [address] [place] [address] Alysia Mckenna MD [address] [address] Referral ID Status Reason Start Date Expiration Date Visits Re quested Visits Authorized [id number] Closed 02/12/2024 1 1 Reason for Visit * Reason Onset Date Comments Candy Starch Mold Printer Feedback 02/12/2024 Encounter Details Date Type Department Care Team Description 02/12/2024 Telephone Adult Medicine [address] [address] Maegan Cohen PA-C Candy Starch Mold Printer Feedback Social History Tobacco Use Types Packs/Day Years [...] encounter Miscellaneous Notes * Telephone Encounter - Maegan Cohen PA-C - 02/12/2024 1:12 PM EDT Patient saw Dr. Mckenna within the last year, so I thought he would not need referral when I saw him. New referral sent. * Telephone Encounter - Mignon Garland - 02/12/2024 1:04 PM EDT Pt cld stating he has a referral to Dr. Mckenna for tennis elbow No current referral in system Previous one was issued in 05/2023 and has been closed out Told pt I'd request a referral and to give it a couple of days to be approved Pt verbalized understanding Order pended to provider documented in this encounter Plan of Treatment Not on file documented as of this encounter Visit Diagnoses Not on filedocumented in this encounter Care Teams Stamp Pad Maker Relationship Specialty Start Date End Date Iliana Moses MD PCP - General Internal Medicine 10/25/23 documented as of this encounter
--- OUTSIDE RECORDS SUMMARY | 2025-01-07 14:44 | XMS_ITS | Encounter Summary ---
Author Organization [facility] Address [address] [place] [address] Care Team Providers Care Front Counter Attendant Name Role Phone Roxana Avila MD Primary Care Provider Unavailable Jackson Miguel DO Primary Care Provider Unavaila ble Iliana Moses MD Primary Care Provider Un available Encounter Details Date Type Department Care Team Description 08/11/2020 Hospital Medical Records [address] [place] [address] Jeremy Fallon MD [address] [place] [id number] Social History Tobacco Use Types Packs/Day Years [...] have Coronavirus / COVID-19? No / Unsure 07/29/2020 10:12 AM EDT documented as of this encounter Plan of Treatment Not on file documented as of this encounter Visit Diagnoses Not on filedocumented in this encounter Care Teams Front Counter Attendant Relationship Specialty Start Date End Date Roxana Avila MD PCP - General Internal Medicine 07/30/1405/13 Jackson Miguel DO PCP - General Internal Medicine 05/23/21 10/24/23 Iliana Moses MD PCP - General Internal Medicine 10/25/23 documented as of this encounter
--- OUTSIDE RECORDS SUMMARY | 2025-01-07 14:44 | XMS_ITS | Encounter Summary ---
Author Organization [facility] Address [address] [place] [address] Care Team Providers Care Cable Inspector Name Role Phone Roxana Avila MD Primary Care Provider Unavailable Jackson Miguel DO Primary Care Provider Unavaila Iliana Delgadillo MD Primary Care Provider Un available Reason for Referral * Specialist (Routine) - Authorized/Booked Specialty Diagnoses / Procedures Referred By Queenie tomas Referred To Contact Neurology Procedures REFERRAL TO NEUROLOGY Roxana Avila MD [address] [place] [address] Izabel Mccallum MD [facility] [address] [place] [address] Referral ID Status Reason Start Date Expiration Date V isits Requested Visits Authorized SEE NOTE Authorized/B ooked 02/21/2015 05/26/2015 1 1 Reason for Visit * Reason Onset Date Comments REFERRAL 02/21/2015 Encounter Details Date Type Department Care Team Description 02/21/2015 Telephone Adult Medicine - [place] [address] [place] [address] Roxana Avila MD REFERRAL Social History Tobacco Use Types Packs/Day Years [...] Telephone Encounter - Roxana Avila MD - 02/21/2015 11:12 AM EDT referral placed * Telephone Encounter - Lis BeattyPThangNThang - 02/21/2015 11:04 AM EDT Pls advise * Telephone Encounter - Carla Sorto - 02/21/2015 10:59 AM EDT Pt was last seen by pcp 02/08-- twitching in neck-- still has not gone away-- pt requesting to be referred to neurology-- pt states this is a recurring problem/tremors and was last seen by neurology about 3 years ago-- thinks he saw dr mccallum-- 2012 documented in this encounter Plan of Treatment Not on file documented as of this encounter Visit Diagnoses Not on filedocumented in this encounter Care Teams Cable Inspector Relationship Specialty Start Date End Date Roxana Avila MD PCP - General Internal Medicine 07/30/1405/13 Jackson Miguel DO PCP - General Internal Medicine 05/23/21 10/24/23 Iliana Moses MD PCP - General Internal Medicine 10/25/23 documented as of this encounter
[2025-01-07 14:46] VITALS: BP 116/88
== END 2025-01-07 14:51 | disposition home or self-care (01) ==
LOC: HO.HMCFM 13:54
PROVIDERS: PCP Physician Assistant Medical; Visit Provider Physician Assistant Medical
DX: L03.116 Cellulitis of left lower limb (principal)

== ENCOUNTER → 2025-01-07 13:53 | Outpatient (BNVA) | payer OTHER, SELFPAY | PROVIDERS: PCP Physician Assistant Medical; Visit Provider Physician Assistant Medical | DX: L03.116 Cellulitis of left lower limb (principal); B95.62 Methicillin resistant Staphylococcus aureus infection as the cause of diseases classified elsewhere | CPT/HCPCS: 99212 ==

== ENCOUNTER 2025-01-21 09:34 | Outpatient (AMB) | payer OTHER, SELFPAY ==
--- NOTE | 2025-01-21 10:08 | A.OFFPC_ITS ---
Vital Signs 01/21/25 10:12 Height 5 ft 7 in Weight 155 lb 8 oz BMI 24.4 BP 124/82 Blood Pressure Location Rt brachial Position Sitting Pulse 97 Pulse Source Pulse Oximeter Temp 97.9 F Temp Source Temporal Artery Scan Pulse Oximetry (%) 97 Oxygen Delivery Method Room Air Intake Visit Reasons: fu leg wound Intake Note: Eliud presents in the office today to follow up on his leg wound. Allergies No Known Allergies Allergy (Verified 01/21/25 10:10) Medication List - Last Reconciled 01/21/25 by RAMÓN Pineda atorvastatin 20 mg PO DAILY clonazepam mg PO fluoxetine 40 mg PO DAILY Lactobac. rhamnosus GG-inulin 10 billion cell -200 mg ([facility]) 1 cap PO DAILY olanzapine 40 mg PO BEDTIME Tobacco use date assessed: 01/21/25 Dental Screening Dental Screen Date: 01/21/25 Did you have a dental visit in the last 12 months?: Yes Did you have a dental problem in the last 6 months where you did not have access to dental care?: No Was dental information given to patient?: Patient has dentist HPI HPI Comments History of Present Illness Details This is a 39-year-old male with a past medical history of schizophrenia, generalized anxiety disorder, depression and dyslipidemia presenting for a wound check. Documented at his visit a week ago: A month prior he presented to the ED with multiple sores to both distal legs after he was scratched by his cat. No cat bites. Initially seen at ED 11/18/2024 and discharged on a 7 day course of Augmentin for management of right lower extremity cellulitis. Presented again on 12/21/2024 with 4 day history of worsening redness and swelling of the left lower extremity. He also reported after finishing his antibiotic course that he was exposed to poison johanny and was placed on prednisone 12/05/2024 which he completed. At the easy he had tachycardia and stable BP and no fever. Lab work was notable for [place] [id number] with a left shift, bump in CRP and unremarkable sed rate at 12. He was discharged on a 7 day course of Bactrim with topical chlorhexidine soap. Return to the ED with worsening left lower extremity infection and ankle swelling which was draining purulent discharge. Patient did admit to excessively picking at wound. He was notably tachycardic with heart rate in the 140s which improved to 120s and stable BP though slightly hypertensive. He was started empirically on IV vancomycin and admitted. His CT of the left lower extremity showed subcutaneous cavity in the left calf with internal focus of gas and hyperdense material and a small sinus tract to the skin with surrounding cellulitis. There was no evidence of necrotizing fasciitis. He underwent incision and drainage in the ED and wound was packed. He was started on the IV vancomycin. Wound culture grew MRSA. He was switched to oral doxycycline. He took his last dose of that today. Creatinine trended down to 1.27 from 1.47. Discharge notes indicate wound was repacked along with dressing change that he would need every 2-3 days for the next week or so. [facility] arranged wound care and discharge. Patient says that he is doing a lot better. It continues to improve. He denies pain. Denies fevers and chills. [facility]NA is coming daily for dressing change. He has an appointment with wound care on 01/26/25. He completed abx. Notes 8 lb weight loss with this ordeal. Denies fevers, chills, nausea, vomiting and abdominal pain. It has been stressful. ROS: Constitutional: No unexplained weight loss, fever, chills, fatigue or night sweats. Respiratory: No shortness of breath, cough or sputum production. Cardiovascular: No chest pain, chest pressure or chest discomfort. No palpitations or pedal edema. Gastrointestinal: No nausea, vomiting or diarrhea. No abdominal pain or blood in stool. Endocrine: No cold or heat intolerance. No polyuria or polydipsia. Physical exam: Constitutional: Alert, in no distress. Respiratory: Clear to auscultation. Cardiovascular: S1 S2 regular. No murmurs. Neurologic: No focal neurological deficits. Abdomen: BS normoactive in 4 quadrants. Soft. Nontender. No organomegaly or palpable masses. Extremities: Warm and well perfused. No clubbing, cyanosis or edema. Intact lower extremity pulses bilaterally. Previously dime sized wound is much smaller on exam today. No discharge. The edges of the wound are pink. No edema. No detectable subcutaneous emphysema on exam. Psychiatric: [facility] Medical History (Updated 01/21/25 @ 22:10 by RAMÓN Pineda) Weight loss Leg wound, left Leg wound, left Left leg cellulitis Surgical History (Updated 04/30/24 @ 14:55 by Briseida Fortune CMA) No pertinent past surgical history Family History Mother Lung cancer Brother Substance abuse Social History (Updated 01/21/25 @ 10:12 by Gill Rangel MA) Housing: Apartment Alcohol intake: never Patient Tobacco Use Status: Former Tobacco user Cigarettes Per Day: 3 Years Smoked: 2 Packs per year/per ci.30 e-Cigarette/Vaping Use: Former Use Second Hand Smoke Exposure: No Use of substances other than those prescribed or required for medical reasons: Yes Substance Use Type: Marijuana service: No Current occupational status: employed and unemployed Current occupation: SS/Disability Cognitive needs: No Hearing needs: No Vision needs: No Questionnaire Thrive Questionnaire Date Thrive assessed: 09/03/24 I am a: Patient What is your living situation today?: I have a steady place to live Within the past 12 months, did the food you bought not last and you didn't have the money to get more?: Often true Within the past 12 months, did you worry whether your food would run out before you got money to buy more?: Often true Do you have trouble paying for medicines?: No Do you have trouble getting transportation to medical appointments?: No Do you have trouble paying your heating and electricity bill?: Yes Do you have trouble taking care of your child, family member or friend?: No Do you have trouble with day-to-day activities such as bathing, preparing meals, shopping, managing finances, etc.?: Yes Are you currently unemployed and looking for a job?: I choose not to answer this question Are you interested in more education?: I choose not to answer this question Please select the resources that you would like help with: None Currently or been in a relationship where the following occur: I choose not to answer THRIVE Score: 3 Physical exam (Primary Care) Vital Signs: Last Vital Signs Temp 97.9 F 01/21/25 10:12 Pulse 97 01/21/25 10:12 BP 124/82 01/21/25 10:12 Pulse Ox 97 01/21/25 10:12 Oxygen Delivery Method Room Air 01/21/25 10:12 BMI result Body Mass Index 24.4 Tobacco/Smoking Status: Tobacco use Status Tobacco use date assessed 01/21/25 01/21/25 10:15 Patient Tobacco Use Status Former Tobacco user 01/21/25 10:15 e-Cigarette/Vaping Use Former Use 01/21/25 10:15 Thrive Assessment: Date of Thrive Assessment Date Thrive assessed 09/03/24 01/21/25 10:15 Currently or been in a relationship where the following occur: I choose not to answer Coding Level of Care Code Est Pt Level 4 (13251) Complex EM visit Add On G2211 Diagnoses Left leg cellulitis L03.116 Leg wound, left S81.802A Weight loss R63.4 Assessment & Plan Assessment & Plan (1) Left leg cellulitis: Code(s): L03.116 - Cellulitis of left lower limb Category: Medical (2) Leg wound, left: Code(s): S81.802A - Unspecified open wound, left lower leg, initial encounter Category: Medical (3) Weight loss: Code(s): R63.4 - Abnormal weight loss Category: Medical Plan The patient comleted antibiotics. VNA is doing dressing changes daily. He has an appointment with wound care next week. Warning signs warranting re-evaluation at the ED reviewed. Weight loss may be secondary to abx use or stress and hospitalization exacerbating existing anxiety. Trial of probiotics. Reviewed ways to increase protein intake. He has an appointment in February for a physical -will recheck weight. Advised to call if weight loss does not stabilize prior to this or he develops new symptoms. Medications: New Lactobac. rhamnosus GG-inulin 10 billion cell -200 mg ([facility]) 1 cap PO DAILY 90 caps 0RF
[2025-01-21 10:12] VITALS: BP 124/82; PULSE 97; TEMP 36.6; O2SAT 97; BMI 24.4
== END 2025-01-21 10:43 | disposition home or self-care (01) ==
LOC: HO.HMCFM 09:35
PROVIDERS: PCP Physician Assistant Medical; Visit Provider Physician Assistant Medical
DX: L03.116 Cellulitis of left lower limb (principal); S81.802A Unspecified open wound, left lower leg, initial encounter; R63.4 Abnormal weight loss

== ENCOUNTER → 2025-01-21 09:34 | Outpatient (BNVA) | payer OTHER, SELFPAY | PROVIDERS: PCP Physician Assistant Medical; Visit Provider Physician Assistant Medical | DX: S80.812A Abrasion, left lower leg, initial encounter (principal); L03.116 Cellulitis of left lower limb; B95.62 Methicillin resistant Staphylococcus aureus infection as the cause of diseases classified elsewhere; Z16.21 Resistance to vancomycin; W55.03XA Scratched by cat, initial encounter; Y93.9 Activity, unspecified; Y92.9 Unspecified place or not applicable; Y99.9 Unspecified external cause status; D72.829 Elevated white blood cell count, unspecified; R63.4 Abnormal weight loss; E78.5 Hyperlipidemia, unspecified; F20.9 Schizophrenia, unspecified; F41.1 Generalized anxiety disorder; F32.A Depression, unspecified; Z73.6 Limitation of activities due to disability | CPT/HCPCS: 99212 ==

== ENCOUNTER 2025-01-26 13:30 | Outpatient (RCR) | payer OTHER, SELFPAY | END 2025-02-09 16:13 | disposition home or self-care (01) | LOC: HO.WCC 13:30 | PROVIDERS: PCP Physician Assistant Medical; Visit Provider Surgery Surgical Oncology | DX: L97.822 Non-pressure chronic ulcer of other part of left lower leg with fat layer exposed (principal); F42.4 Excoriation (skin-picking) disorder; F42.8 Other obsessive-compulsive disorder; F12.90 Cannabis use, unspecified, uncomplicated; Z87.891 Personal history of nicotine dependence | CPT/HCPCS: 97597; 99203; 99212 ==